=== PATIENT | male | born 1975 | race Caucasian/White ===

== ENCOUNTER 2016-08-27 09:45 | Outpatient (RCR) | payer MEDICARE, OTHER ==
[2016-08-27 09:58] LABS: MEAN CORPUSCULAR HEMOGLOBIN 29.6 PG (26.0-34.0); MEAN CORPUSCULAR VOLUME 83 FL (80-100); MEAN PLATELET VOLUME 8.8 FL (6.0-9.5); PLATELET COUNT 211 10^3uL (150-450); WHITE BLOOD COUNT 6.91 10^3uL (4.0-11.0)
[2016-08-27 10:23] LABS: MEAN CORPUSCULAR HGB CONC 35.6 g/dL (31.0-37.0)
[2016-08-27 10:52] LABS: ALBUMIN 4.5 g/dL (3.4-5.0); ANION GAP 16.5 MEQ/L (3-15); CALCULATED IONIZED CALCIUM 3.9 mg/dL (3.8-4.6); MAGNESIUM* 1.9 mg/dL (1.6-2.3); PHOSPHORUS 5.3 mg/dL (2.4-4.9)
[2016-08-27 11:48] LABS: BAND NEUTROPHILS % 0 % (0-6); EOSINOPHILS % 1 % (0-4); LYMPHOCYTES # 1.3 #; MONOCYTES # 0.7 #; MONOCYTES % 12 % (3-11); RBC MORPH SEE REFERENCE (NORMAL); SEGMENTED NEUTROPHILS % 68 % (51-67); TOTAL CELLS COUNTED 100
[2016-09-28 15:33] LABS: BASOPHILS % (AUTO) 0 % (0-2); EOSINOPHILS # (AUTO) 0.1 10^3uL; EOSINOPHILS % (AUTO) 1 % (0-4); LYMPHOCYTES # (AUTO) 0.8 X10^3; MEAN CORPUSCULAR HEMOGLOBIN 29.7 PG (26.0-34.0); MEAN CORPUSCULAR HGB CONC 34.4 g/dL (31.0-37.0); MEAN CORPUSCULAR VOLUME 86 FL (80-100); MONOCYTES # (AUTO) 0.5 X10^3; MONOCYTES % (AUTO) 8 % (3-11); NEUTROPHILS # (AUTO) 4.7 X10^3; NEUTROPHILS % (AUTO) 78 % (51-67); PLATELET COUNT 204 10^3uL (150-450); WHITE BLOOD COUNT 6.03 10^3uL (4.0-11.0)
[2016-10-03 19:42] LABS: KAPPA LIGHT CHAINS SERUM 3.22 mg/dL; LAMBDA LIGHT CHAINS SERUM 0.183 mg/dL
[2016-10-16 09:13] LABS: MEAN CORPUSCULAR HEMOGLOBIN 29.5 PG (26.0-34.0); MEAN CORPUSCULAR HGB CONC 33.9 g/dL (31.0-37.0); MEAN CORPUSCULAR VOLUME 87 FL (80-100); MEAN PLATELET VOLUME 8.9 FL (6.0-9.5); PLATELET COUNT 177 10^3uL (150-450); WHITE BLOOD COUNT 8.58 10^3uL (4.0-11.0)
[2016-10-16 09:26] LABS: BAND NEUTROPHILS % 1 % (0-6); EOSINOPHILS % 0 % (0-4); LYMPHOCYTES # 2.3 #; MONOCYTES # 0.3 #; MONOCYTES % 4 % (3-11); RBC MORPH NORMAL (NORMAL); SEGMENTED NEUTROPHILS % 68 % (51-67); TOTAL CELLS COUNTED 100
[2016-10-16 09:44] LABS: ALBUMIN 4.5 g/dL (3.4-5.0); ANION GAP 18.1 MEQ/L (3-15); CALCULATED IONIZED CALCIUM 4.2 mg/dL (3.8-4.6); MAGNESIUM* 1.6 mg/dL (1.6-2.3)
[2016-10-17 18:52] LABS: KAPPA LIGHT CHAINS SERUM 3.68 mg/dL; LAMBDA LIGHT CHAINS SERUM 0.159 mg/dL
[2016-10-22 16:05] LABS: MEAN CORPUSCULAR HEMOGLOBIN 29.8 PG (26.0-34.0); MEAN CORPUSCULAR HGB CONC 34.7 g/dL (31.0-37.0); MEAN CORPUSCULAR VOLUME 86 FL (80-100); PLATELET COUNT 192 10^3uL (150-450)
[2016-10-22 16:40] LABS: ALBUMIN 4.7 g/dL (3.4-5.0); ANION GAP 16.5 MEQ/L (3-15); CALCULATED IONIZED CALCIUM 4.2 mg/dL (3.8-4.6); MAGNESIUM* 1.9 mg/dL (1.6-2.3); PHOSPHORUS 4.7 mg/dL (2.4-4.9); TOTAL PROTEIN 7.8 g/dL (6.4-8.5)
[2016-10-22 16:41] LABS: BAND NEUTROPHILS % 0 % (0-6); EOSINOPHILS % 1 % (0-4); LYMPHOCYTES # 1.2 #; MONOCYTES # 0.3 #; MONOCYTES % 5 % (3-11); RBC MORPH NORMAL (NORMAL); SEGMENTED NEUTROPHILS % 76 % (51-67); TOTAL CELLS COUNTED 100
[2016-10-24 14:46] LABS: KAPPA LIGHT CHAINS SERUM 3.28 mg/dL; LAMBDA LIGHT CHAINS SERUM 0.159 mg/dL
[2016-11-12 10:12] LABS: BASOPHILS % (AUTO) 0 % (0-2); EOSINOPHILS # (AUTO) 0.2 10^3uL; EOSINOPHILS % (AUTO) 3 % (0-4); MEAN CORPUSCULAR HEMOGLOBIN 30.5 PG (26.0-34.0); MEAN CORPUSCULAR HGB CONC 35.1 g/dL (31.0-37.0); MEAN CORPUSCULAR VOLUME 87 FL (80-100); MEAN PLATELET VOLUME 8.9 FL (6.0-9.5); MONOCYTES # (AUTO) 0.6 X10^3; MONOCYTES % (AUTO) 10 % (3-11); NEUTROPHILS # (AUTO) 4.5 X10^3; NEUTROPHILS % (AUTO) 72 % (51-67); PLATELET COUNT 193 10^3uL (150-450); WHITE BLOOD COUNT 6.27 10^3uL (4.0-11.0)
[2016-11-20 14:56] LABS: MEAN CORPUSCULAR HEMOGLOBIN 30.3 PG (26.0-34.0); MEAN CORPUSCULAR HGB CONC 35.4 g/dL (31.0-37.0); MEAN CORPUSCULAR VOLUME 86 FL (80-100); MEAN PLATELET VOLUME 8.9 FL (6.0-9.5); PLATELET COUNT 173 10^3uL (150-450); WHITE BLOOD COUNT 7.14 10^3uL (4.0-11.0)
[2016-11-20 15:19] LABS: BAND NEUTROPHILS % 0 % (0-6); EOSINOPHILS % 1 % (0-4); LYMPHOCYTES # 0.8 #; MONOCYTES # 0.4 #; MONOCYTES % 5 % (3-11); SEGMENTED NEUTROPHILS % 83 % (51-67); TOTAL CELLS COUNTED 100
[2016-11-20 15:20] LABS: RBC MORPH NORMAL (NORMAL)
[2016-11-20 16:30] LABS: ALBUMIN 4.6 g/dL (3.4-5.0); ANION GAP 18.3 MEQ/L (3-15); CALCULATED IONIZED CALCIUM 4.2 mg/dL (3.8-4.6); MAGNESIUM* 1.8 mg/dL (1.6-2.3); PHOSPHORUS 4.5 mg/dL (2.4-4.9); TOTAL PROTEIN 7.5 g/dL (6.4-8.5)
[2016-11-22 13:31] LABS: KAPPA LIGHT CHAINS SERUM 5.3 mg/dL; LAMBDA LIGHT CHAINS SERUM 0.187 mg/dL (())
== END 2016-11-25 | disposition home or self-care (01) ==
LOC: LAB 09:45
PROVIDERS: ATTEND Internal Medicine Hematology & Oncology
DX: C90.00 Multiple myeloma not having achieved remission (principal); Z94.84 Stem cells transplant status
CPT/HCPCS: 36415; 80053; 82565; 83615; 83735; 83883; 84100; 85007; 85025; 85027

== ENCOUNTER 2016-11-19 10:58 | Emergency (ER) | payer MEDICARE, OTHER ==
[~2016-11-19] VITALS: Ht 190.5 cm; Wt 108.0 kg
[2016-11-19 12:07] LABS: BASOPHILS % (AUTO) 0 % (0-2); EOSINOPHILS # (AUTO) 0.2 10^3uL; EOSINOPHILS % (AUTO) 2 % (0-4); LYMPHOCYTES # (AUTO) 1.3 X10^3; MEAN CORPUSCULAR HEMOGLOBIN 30.7 PG (26.0-34.0); MEAN CORPUSCULAR HGB CONC 35.2 g/dL (31.0-37.0); MEAN CORPUSCULAR VOLUME 87 FL (80-100); MEAN PLATELET VOLUME 9.3 FL (6.0-9.5); MONOCYTES # (AUTO) 0.6 X10^3; MONOCYTES % (AUTO) 9 % (3-11); NEUTROPHILS # (AUTO) 4.7 X10^3; NEUTROPHILS % (AUTO) 69 % (51-67); PLATELET COUNT 169 10^3uL (150-450); WHITE BLOOD COUNT 6.78 10^3uL (4.0-11.0)
[2016-11-19 12:11] LABS: ALBUMIN 4.6 g/dL (3.4-5.0); ALKALINE PHOSPHATASE 79 U/L (38-126); ANION GAP 16.5 MEQ/L (3-15); BUN/CREATININE RATIO 16 (10-20); CALCULATED IONIZED CALCIUM 4.1 mg/dL (3.8-4.6); CREATINE KINASE 40 U/L (55-170); TOTAL PROTEIN 7.6 g/dL (6.4-8.5)
[2016-11-19 12:17] LABS: BILIRUBIN,URINE Negative (Negative); CLARITY,URINE Clear; GLUCOSE, URINE (UA) Negative (Negative); LEUKOCYTE ESTERASE ,URINE Negative (Negative); UROBILINOGEN,URINE 0.2 mg/dL (0.2-1.0)
[2016-11-19 12:18] LABS: COLOR,URINE Light Yellow
[2016-11-19 12:37] LABS: AMPHETAMINE SCREEN, URINE Negative (Negative); CANNABINOID SCREEN, URINE Negative (Negative); METHAMPHETAMINE SCREEN URINE S NEGATIVE (NEGATIVE); OPIATE SCREEN URINE Positive (Negative); PROPOXYPHENE STAT NEGATIVE (NEGATIVE)
[2016-11-19 13:59] VITALS: BP 98/57
== END 2016-11-19 14:00 | disposition home or self-care (01) ==
LOC: ED 10:59
DX: R55 Syncope and collapse (principal); C90.00 Multiple myeloma not having achieved remission; R51 Headache
CPT/HCPCS: 36415; 70450; 80053; 81003; 82550; 82553; 84484; 85025; 99283; G0478; 80307

== ENCOUNTER → 2016-11-19 | Outpatient (CLI) | payer MEDICARE, OTHER | LOC: EMS 10:37 | PROVIDERS: ATTEND Family Medicine | DX: T40.2X1A Poisoning by other opioids, accidental (unintentional), initial encounter (principal) ==

== ENCOUNTER → 2016-11-23 | Outpatient (CLI) | payer MEDICARE, OTHER | LOC: RAD 09:19 | PROVIDERS: ATTEND Internal Medicine Hematology & Oncology | DX: C90.00 Multiple myeloma not having achieved remission (principal); M54.2 Cervicalgia | CPT/HCPCS: 72157; 77075; A9579 ==

== ENCOUNTER 2016-11-27 19:16 | Emergency (ER) | payer MEDICARE, OTHER ==
[~2016-11-27] VITALS: Ht 188 cm; Wt 108.6 kg
[2016-11-27 22:28] LABS: BASOPHILS % (AUTO) 0 % (0-2); EOSINOPHILS % (AUTO) 0 % (0-4); MEAN CORPUSCULAR HEMOGLOBIN 30.4 PG (26.0-34.0); MEAN CORPUSCULAR VOLUME 85 FL (80-100); MONOCYTES # (AUTO) 0.5 X10^3; MONOCYTES % (AUTO) 5 % (3-11); NEUTROPHILS # (AUTO) 8.9 X10^3; NEUTROPHILS % (AUTO) 85 % (51-67); PLATELET COUNT 195 10^3uL (150-450); WHITE BLOOD COUNT 10.51 10^3uL (4.0-11.0)
[2016-11-27 22:32] LABS: MEAN CORPUSCULAR HGB CONC 35.8 g/dL (31.0-37.0)
[2016-11-27 22:37] LABS: ALBUMIN 4.7 g/dL (3.4-5.0); ANION GAP 16.3 MEQ/L (3-15); CALCULATED IONIZED CALCIUM 3.9 mg/dL (3.8-4.6); TOTAL PROTEIN 7.9 g/dL (6.4-8.5)
[2016-11-27] MEDS ORDERED: LORazepam 2 MG/ML (ATIVAN) 1 ML VIAL IV ONE (23:35)
[2016-11-27] MEDS ORDERED: BISACODYL 10 MG SUPP (DULCOLAX) PR ONE (23:35)
--- NOTE | 2016-11-28 00:28 | NUR ---
Pt had BM with in 5 minutes of receiving his suppository and enema.
[2016-11-28 00:33] LABS: BILIRUBIN,URINE Negative (Negative); CLARITY,URINE Clear; COLOR,URINE Yellow; GLUCOSE, URINE (UA) Negative (Negative); LEUKOCYTE ESTERASE ,URINE Negative (Negative); PH,URINE 8.5 (5.0 - 8.0); UROBILINOGEN,URINE 0.2 mg/dL (0.2-1.0)
[2016-11-28 00:34] LABS: URINE CENTRIFUGED VOLUME 12 mL
[2016-11-28 00:38] LABS: RBC,URINE 0-2 /HPF
[2016-11-28 00:44] VITALS: BP 127/88
== END 2016-11-28 00:45 | disposition home or self-care (01) ==
LOC: ED 19:18
DX: K59.00 Constipation, unspecified (principal)
CPT/HCPCS: 36415; 74022; 80053; 81003; 81015; 83690; 85025; 96361; 96374; 99285; A9270; J2060; J7030; 99282

== ENCOUNTER 2016-12-04 12:19 | Outpatient (RCR) | payer MEDICAID, MEDICARE ==
[~2016-12-04 12:19] MED LIST: ACYC400T PO; ALPR0.5T PO; ALPR1TAB2 PO; AMLO10TA4 PO; AMLO10TA5 PO; AMLO5TAB4 PO; AMOX1TAB12 PO; CALC-660 PO; CALC-900 PO; CALC600T12 PO; CHOL400T PO; CHOL400T26 PO; CYCL-265 PO; CYCL10TA45 PO; CYCL5TAB PO; DEXA4TAB PO; DIAZ5TAB3 PO; FAMO-119 PO; FRSM40T PO; FURO40TA4 PO; GABA600T PO; GBPN300C PO; HCT25T PO; HDR2T PO; HYDR8TAB PO; INDA2.5T2 PO; INSU100C7 SQ; INSU100I23 SQ; KCL20TCR PO; LENA2.5C PO; LENA25CA PO; LISI5TAB14 PO; LORA-405 PO; LSNP10T PO; LVF500T PO; MELO-249 PO; METH10TA2 PO; METH4TAB27 PO; MORP100T PO; MORP60TA PO; MULT-187 PO; NAPR220T29 PO; NAPR250T PO; NAPR500T PO; OMEP20CA6 PO; OXYC15TA79 PO; OXYC20TA3 PO; OXYC20TA72 PO; OXYC30TA80 PO; PARO25TA PO; PARO25TA9 PO; PARO40TA3 PO; POTA10CA16 PO; POTA10TA10 PO; POTA20TA12 PO; PRED50TA PO; SULF1TAB34 PO; TAPE100T5 PO; TEST2.5G2 TD; TRAM-25 PO; [UNRECOGNIZED DRUG - CODE] PO
[2016-12-07 15:54] LABS: MEAN CORPUSCULAR HEMOGLOBIN 29.7 PG (26.0-34.0); MEAN CORPUSCULAR HGB CONC 34.1 g/dL (31.0-37.0); MEAN CORPUSCULAR VOLUME 87 FL (80-100); MEAN PLATELET VOLUME 8.6 FL (6.0-9.5); PLATELET COUNT 202 10^3uL (150-450); WHITE BLOOD COUNT 7.15 10^3uL (4.0-11.0)
[2016-12-07 17:09] LABS: ALBUMIN 4.7 g/dL (3.4-5.0); ANION GAP 16.2 MEQ/L (3-15); CALCULATED IONIZED CALCIUM 4.2 mg/dL (3.8-4.6); TOTAL PROTEIN 7.7 g/dL (6.4-8.5)
[2016-12-07 17:25] LABS: BAND NEUTROPHILS % 3 % (0-6); SEGMENTED NEUTROPHILS % 76 % (51-67)
[2016-12-07 17:26] LABS: EOSINOPHILS % 3 % (0-4); LYMPHOCYTES # 0.6 #; MONOCYTES # 0.7 #; MONOCYTES % 10 % (3-11); RBC MORPH NORMAL (NORMAL); TOTAL CELLS COUNTED 100
[2016-12-20 14:47] LABS: MEAN CORPUSCULAR HEMOGLOBIN 29.6 PG (26.0-34.0); MEAN CORPUSCULAR HGB CONC 34.3 g/dL (31.0-37.0); MEAN CORPUSCULAR VOLUME 86 FL (80-100); MEAN PLATELET VOLUME 8.7 FL (6.0-9.5); PLATELET COUNT 177 10^3uL (150-450); WHITE BLOOD COUNT 8.05 10^3uL (4.0-11.0)
[2016-12-20 15:22] LABS: ALBUMIN 4.5 g/dL (3.4-5.0); ANION GAP 14.9 MEQ/L (3-15); CALCULATED IONIZED CALCIUM 3.8 mg/dL (3.8-4.6); MAGNESIUM* 1.8 mg/dL (1.6-2.3); TOTAL PROTEIN 7.7 g/dL (6.4-8.5)
[2016-12-20 15:24] LABS: BAND NEUTROPHILS % 1 % (0-6); EOSINOPHILS % 3 % (0-4); LYMPHOCYTES # 0.8 #; MONOCYTES # 0.5 #; MONOCYTES % 6 % (3-11); RBC MORPH NORMAL (NORMAL); SEGMENTED NEUTROPHILS % 80 % (51-67); TOTAL CELLS COUNTED 100
[2016-12-24 13:51] LABS: KAPPA LIGHT CHAINS SERUM 6.54 mg/dL
[2017-01-10] MEDS ORDERED: PRED10TA PO (03:18)
[2017-01-10] MEDS ORDERED: DIPH25TA65 PO (03:33)
[2017-01-10] MEDS ORDERED: POLY255P PO ×2 (08:26→08:28)
[2017-01-10] MEDS ORDERED: TEST75GE3 TOP (08:33)
[2017-01-10] MEDS ORDERED: LSNP10T PO (09:25)
[2017-01-10] MEDS ORDERED: INDA1.25 PO (09:26)
[2017-01-10] MEDS ORDERED: ACYC200C PO (09:33)
[2017-01-10] MEDS ORDERED: FLUT1AER IH (10:55)
[2017-01-10] MEDS ORDERED: POTA20TA15 PO (11:22)
[2017-01-14] MEDS ORDERED: CEFD300C PO (11:28)
[2017-01-22 08:20] LABS: BASOPHILS % (AUTO) 0 % (0-2); EOSINOPHILS # (AUTO) 0.1 10^3uL; EOSINOPHILS % (AUTO) 1 % (0-4); LYMPHOCYTES # (AUTO) 1.9 X10^3; MEAN CORPUSCULAR HEMOGLOBIN 29.5 PG (26.0-34.0); MEAN CORPUSCULAR HGB CONC 33.6 g/dL (31.0-37.0); MEAN CORPUSCULAR VOLUME 88 FL (80-100); MEAN PLATELET VOLUME 9.2 FL (6.0-9.5); MONOCYTES # (AUTO) 0.8 X10^3; MONOCYTES % (AUTO) 8 % (3-11); NEUTROPHILS # (AUTO) 7.3 X10^3; NEUTROPHILS % (AUTO) 72 % (51-67); PLATELET COUNT 246 10^3uL (150-450); WHITE BLOOD COUNT 10.19 10^3uL (4.0-11.0)
[2017-01-22 08:27] LABS: ALBUMIN 4.8 g/dL (3.4-5.0); ANION GAP 19.3 MEQ/L (3-15); CALCULATED IONIZED CALCIUM 3.8 mg/dL (3.8-4.6); TOTAL PROTEIN 8.8 g/dL (6.4-8.5)
[2017-01-28 15:35] LABS: MEAN CORPUSCULAR HGB CONC 34.1 g/dL (31.0-37.0); MEAN CORPUSCULAR VOLUME 88 FL (80-100); MEAN PLATELET VOLUME 8.7 FL (6.0-9.5); PLATELET COUNT 180 10^3uL (150-450); WHITE BLOOD COUNT 6.62 10^3uL (4.0-11.0)
[2017-01-28 15:43] LABS: BAND NEUTROPHILS % 1 % (0-6); EOSINOPHILS % 6 % (0-4); LYMPHOCYTES # 1.1 #; MONOCYTES # 0.8 #; MONOCYTES % 13 % (3-11); SEGMENTED NEUTROPHILS % 63 % (51-67); TOTAL CELLS COUNTED 100
[2017-01-28 15:44] LABS: RBC MORPH NORMAL (NORMAL)
[2017-01-28 15:46] LABS: ALBUMIN 4.4 g/dL (3.4-5.0); ANION GAP 17.4 MEQ/L (3-15); CALCULATED IONIZED CALCIUM 3.9 mg/dL (3.8-4.6); MAGNESIUM* 1.5 mg/dL (1.6-2.3); TOTAL PROTEIN 7.9 g/dL (6.4-8.5)
[2017-01-30 10:54] LABS: KAPPA LIGHT CHAINS SERUM 9.67 mg/dL; LAMBDA LIGHT CHAINS SERUM 0.0541 mg/dL
[2017-02-16] MEDS ORDERED: OXYC10TA7 PO (20:28)
[2017-02-16] MEDS ORDERED: ONDA8TAB6 PO (20:28)
[2017-02-16] MEDS ORDERED: PROM25TA14 PO (23:40)
== END 2017-02-27 19:18 | disposition home or self-care (01) ==
LOC: LAB 12:19
PROVIDERS: ATTEND Internal Medicine Hematology & Oncology
DX: C90.00 Multiple myeloma not having achieved remission (principal); Z94.84 Stem cells transplant status
CPT/HCPCS: 36415; 80053; 82784; 83615; 83735; 83883; 84100; 84155; 85007; 85025; 85027; 86334

== ENCOUNTER 2017-01-10 02:39 | Inpatient (IN) | payer MEDICARE ==
[~2017-01-10] VITALS: Ht 188 cm; Wt 107.8 kg
[2017-01-10] MEDS ORDERED: LORazepam 2 MG/ML (ATIVAN) 1 ML VIAL IV ONE (03:05)
[2017-01-10] MEDS: SODIUM CHLORIDE FLUSH 10 ML SYR IV PRN (03:05)
[2017-01-10 03:16] LABS: BASOPHILS % (AUTO) 0 % (0-2); EOSINOPHILS # (AUTO) 0.1 10^3uL; EOSINOPHILS % (AUTO) 2 % (0-4); LYMPHOCYTES # (AUTO) 1.6 X10^3; MEAN CORPUSCULAR HEMOGLOBIN 29.7 PG (26.0-34.0); MEAN CORPUSCULAR HGB CONC 33.5 g/dL (31.0-37.0); MEAN CORPUSCULAR VOLUME 89 FL (80-100); MEAN PLATELET VOLUME 8.6 FL (6.0-9.5); MONOCYTES # (AUTO) 0.6 X10^3; MONOCYTES % (AUTO) 7 % (3-11); NEUTROPHILS # (AUTO) 5.3 X10^3; NEUTROPHILS % (AUTO) 69 % (51-67); PLATELET COUNT 196 10^3uL (150-450); WHITE BLOOD COUNT 7.66 10^3uL (4.0-11.0)
[2017-01-10] MEDS ORDERED: PRED10TA PO (03:18)
[2017-01-10] MEDS ORDERED: SODIUM CHLORIDE FLUSH 3 ML SYR IV ONE (03:20)
[2017-01-10 03:25] LABS: ALBUMIN 4.5 g/dL (3.4-5.0); ALKALINE PHOSPHATASE 76 U/L (38-126); BUN/CREATININE RATIO 17 (10-20); CALCULATED IONIZED CALCIUM 3.8 mg/dL (3.8-4.6); TOTAL PROTEIN 7.8 g/dL (6.4-8.5)
[2017-01-10] MEDS ORDERED: DIPH25TA65 PO (03:33)
--- NOTE | 2017-01-10 03:35 | NUR ---
CRISTINE FROM LAB CALLED ET D DIMER [address] MCKEE KNOW AND SHE ORDERED A C SCAN
--- NOTE | 2017-01-10 04:08 | NUR ---
UP TO BAILEE BY HIMSELF
--- NOTE | 2017-01-10 04:33 | NUR ---
TEMP 102.2 TEMPORAL TOOK ORAL WAS [address] MCKEE KNOW
[2017-01-10] MEDS ORDERED: ACETAMINOPHEN 500 MG TAB (TYLENOL) PO ONE (04:35)
[2017-01-10] MEDS ORDERED: KETOROLAC 30 MG/ML (TORADOL) 1 ML VIAL IV ONE (04:35)
[2017-01-10 05:28] LABS: BILIRUBIN,URINE Negative (Negative); CLARITY,URINE Clear; COLOR,URINE Yellow; GLUCOSE, URINE (UA) Negative (Negative); LEUKOCYTE ESTERASE ,URINE Negative (Negative); PH,URINE 5.5 (5.0 - 8.0); UROBILINOGEN,URINE 0.2 mg/dL (0.2-1.0)
[2017-01-10 05:34] LABS: URINE CENTRIFUGED VOLUME 12 mL
[2017-01-10 05:36] LABS: RBC,URINE 0-2 /HPF
[2017-01-10] MEDS ORDERED: AZITHROMYCIN VIAL 500 MG in SODIUM CHLORIDE 250 ML IV ONE (05:40)
[2017-01-10] MEDS ORDERED: PIPERACILLIN/TAZOBACTAM 3.375 GM in SODIUM CHLORIDE 50 ML IV ONE (05:40)
--- NOTE | 2017-01-10 05:40 | NUR ---
GOT C SCAN RESULTS BACK AND INITIATED PNEUOMINIA PROTOCOL
--- NOTE | 2017-01-10 06:15 | NUR ---
Pt. arrives to the Med Surg floor via cart; accompanied by ER/RN Kirsten. Pt. is cooperative; drowsy; transfers to weigh chair without difficulty. IVF infusing currently: Zocarsonn & NS. Pt. stands at bedside to use urinal. Admission process continues.
[2017-01-10 06:20] VITALS: BP 115/69
--- NOTE | 2017-01-10 06:26 | NUR ---
Dr. Abebe assessing patient.
--- NOTE | 2017-01-10 06:38 | NUR ---
Pt.'s box tender here to see pt.
--- NOTE | 2017-01-10 06:47 | History and Physical (E) ---
History & Physical PCP: Jesu Hill MD CC: SOB, cough HPI: The pt has had MM for the past 5 years and currently undergoing immunotherapy for this. He presented to the ER due to worsening weakness, lethargy, cough, with productive sputum. The symptoms have been present for the past several month and he states a year ago he was intubated for 5 days due to a CAP . PMH: Multiple Myeloma chronic headaches chronic pain, HTN, osteoporosis ALLERGIES: Please see list at end of report. HOME MEDICATIONS: Please see list at end of report. FH" Father recently due to prostate cancer SH: no tob or ETOH, lives with mother in a house, on disability ROS CONSTITUTION: + fever or chills. CV: No chest pain, palpitations. PULM: + cough, shortness of breath, and difficulty breathing. GI: No upset stomach, nausea, vomiting, constipation, or diarrhea. No blood in stool. : No dysuria. No blood in urine. MS: + generalized muscle aches and pains. NEURO: No numbness or tingling. No weakness. INTEG: No rashes, lesions, or sores. OBJECTIVE GEN: Awake, alert, oriented, NAD CV: RRR S1 S2 normal with no murmur LUNGS: rales in bases laterally, no distress, ABD: normal bowel sounds. INTEG: No rash. Weight: 114.6 kg LABS: reviewed, IMAGING: CTA chest ASSESSMENT 1. Pneumonia 2. Multiple Myeloma 3. HTN 4. Chronic pain PLAN: Will place pt on rocephin & azithromycin, apears stable at this time but will need to monitor closely, recommend repeating CXR in am of 01/11, start breathing tx, resume home meds including long acting narcotics. Allergies/Home Medications Allergies: Coded Allergies: dexamethasone (Verified Allergy, Severe, HIVES , 01/10/17) STEROID RAGE sulfamethoxazole (Verified Allergy, Mild, Hives, 01/10/17) trimethoprim (Verified Allergy, Mild, Hives, 01/10/17) morphine (Verified Allergy, Unknown, Hives, 01/10/17) pregabalin (Verified Allergy, Unknown, Hives, 01/10/17) Reported Home Medications Scheduled Calcium Carbonate/Vitamin D3 (Calcium 600 + Vit D 800 Tab) 2 TAB PO DAILY ( Reported) Diphenhydramine HCl (Benadryl Allergy) 25 MG PO NEEDED (Reported) Indapamide (Indapamide) 2.5 MG PO DAILY (Reported) Lisinopril (Lisinopril) 5 MG PO DAILY (Reported) Paroxetine HCl (Paroxetine HCl) 40 MG PO DAILY (Reported) Potassium Chloride (Potassium Chloride) 20 MEQ PO BID (Reported) Prednisone (Prednisone) 10 MG PO DAILY (Reported) Testosterone (Androgel) 1 APPLIC TD DAILY (Reported) Scheduled PRN Cyclobenzaprine HCl (Flexeril) 10 MG PO TID PRN PRN MUSCLE SPASMS (Reported) Diazepam (Diazepam) 5 MG PO TID PRN PRN ANXIETY (Reported) Furosemide (Furosemide) 40 MG PO DAILY PRN PRN EDEMA (Reported) Hydromorphone HCl (Hydromorphone) 8-16 MG PO Q3HR PRN PRN PAIN (Reported) Oxycodone HCl (Oxycodone HCl) 30-60 MG PO EVERY 3-4 HOURS PRN PRN PAIN (Reported ) Discontinued Medications Amoxicillin/Clavulanate Potassium (Augmentin 875mg/125mg) 1 TAB PO BID Discontinued Reason: Update list Methylprednisolone (Medrol Dosepack) 21 TAB PO UD Discontinued Reason: Update list Copies to: End of Report . RUSTAM KOENIG MD Jan 10, 2017 06:20
--- NOTE | 2017-01-10 07:10 | NUR ---
Woke patient from sleep for bedside rounds. He denied any pain at this time. IV sites in left AC and left forearm have no redness or edema. He falls back to sleep quickly.
--- NOTE | 2017-01-10 07:35 | Diagnostic Imaging Report ---
PROCEDURE: CT angiography of the chest with contrast. TECHNIQUE: Multiple contiguous axial images were obtained through the chest after uneventful bolus administration of intravenous contrast. Reconstructed CTA MIP acquisitions were also performed. INDICATION: Cough and elevated d-dimer There is somewhat limited pulmonary arterial opacification, however, no filling defect is identified to indicate embolism. Dependent atelectasis and/or pneumonitis is seen in both lung bases. There is diffuse pulmonary venous congestion with small amount of right pleural fluid. There has been increase in diffuse degenerative change most particularly at the sternoclavicular joints. There is also an increase in diffuse osteopenia and mixed lytic and sclerotic changes throughout the osseous structures. IMPRESSION: No CTA evidence of pulmonary embolism. There is dependent atelectasis and/or pneumonitis in both lung bases. Mixed lytic and sclerotic foci throughout the bones may represent metabolic bone disorder or possible metastatic disease and clinical correlation is recommended. Dictated by: Dictated on workstation # [id number]
--- NOTE | 2017-01-10 07:40 | Diagnostic Imaging Report ---
INDICATION: Cough Comparison is made to the study of 11/27/2016. There is mild cardiomegaly. Pulmonary vascularity is increased indicating mild venous congestion. No pneumothorax is identified. There is basilar atelectasis and/or pneumonitis. Areas of sclerosis within the spine and ribs are again noted with previous thoracic vertebral body augmentation. IMPRESSION: Developing pulmonary venous congestion with basilar atelectasis and/or pneumonitis. Mixed lytic and sclerotic lesion involving the osseous structures may be the result of metastatic disease with pathologic fractures. Clinical correlation is recommended. Dictated by: Dictated on workstation # [id number]
--- NOTE | 2017-01-10 07:45 | NUR ---
Patient complains of chronic pain the back rated at 8/10. It is too soon for PRN Tylenol- last dose in ER was about 0445. Informed the patient that I will contact Dr. Aguilar regarding pain control.
[2017-01-10 07:56] VITALS: BP 115/77
[2017-01-10] MEDS ORDERED: cefTRIAXone SODIUM 1,000 MG in SODIUM CHLORIDE 50 ML IV SCH (08:00)
--- NOTE | 2017-01-10 08:00 | NUR ---
Resting in bed with his eyes closed. IV site occludes frequently when the patient repositions- no redness or edema noted.
[2017-01-10] MEDS ORDERED: POLY255P PO ×2 (08:26→08:28)
[2017-01-10] MEDS ORDERED: HYDROmorphone (DILAUDID) 4 MG TAB PO PRN (08:30)
[2017-01-10] MEDS ORDERED: MAGNESIUM HYDROXIDE 80MG/ML (MILK OF MAGNESIA) 30 ML UDC PO PRN (08:30)
[2017-01-10] MEDS ORDERED: DIAZEPAM 5 MG (VALIUM) TABLET PO PRN (08:30)
[2017-01-10] MEDS ORDERED: DOCUSATE SODIUM 100 MG (COLACE) CAP PO PRN (08:30)
[2017-01-10] MEDS ORDERED: OXYCODONE IMMEDIATE PO PRN (08:30)
[2017-01-10] MEDS ORDERED: TEST75GE3 TOP (08:33)
--- NOTE | 2017-01-10 08:50 | NUR ---
Gave Dilaudid 8mg. PO for complaint of chronic back pain rated 8/10. Patient instructs me that this is half as much as he usually takes at home. Will discuss with Dr. Aguilar.
[2017-01-10] MEDS ORDERED: lisINopril 5 MG (PRINIVIL) TABLET PO SCH (09:00)
[2017-01-10] MEDS ORDERED: AZITHROMYCIN VIAL 500 MG in SODIUM CHLORIDE 250 ML IV SCH (09:00)
[2017-01-10] MEDS ORDERED: INDAPAMIDE 2.5 MG (LOZOL) TAB PO SCH (09:00)
--- NOTE | 2017-01-10 09:12 | NUR ---
NUTRITION ASSESSMENT Level 1 Patient: Joselito Hanley Age/Sex: 41/M Date Screened: 01-10-17 Weight: 251.4#/114.3 kg Height: 74 inches Primary Diagnosis: pneumonia, multiple myeloma Diet Order: regular Relevant labs: glucose 118 Food allergies: N Nutrition Assessment Criteria Age over 80: N Body Mass Index (BMI) under 19: N Admission Screening Indicates Risk? 3 points Moderate/High Risk Diagnosis: 3 points TPN or PPN: N NPO or clear liquid diet: N Serum Glucose <70 or >180: N Hgb A1c >6.7: N/A Total: 6 points Risk Screen: __ Patient at low nutritional risk based on available data; reevaluate in 5-7 days __ Patient at moderate nutritional risk based on available data; reevaluate in 3-5 days _X_ Patient at high nutritional risk; complete Nutrition Assessment within 48 hours of admission.
[2017-01-10] MEDS ORDERED: INDAPAMIDE 1.25 MG PO SCH ×4 (09:15→21:00)
[2017-01-10] MEDS ORDERED: LSNP10T PO (09:25)
[2017-01-10] MEDS ORDERED: INDA1.25 PO (09:26)
[2017-01-10] MEDS ORDERED: ACYC200C PO (09:33)
--- NOTE | 2017-01-10 10:00 | NUR ---
Patient reports decreased pain and rates it at 6/10 at this time.
[2017-01-10] MEDS: ENOXAPARIN 40 MG/0.4 ML (LOVENOX) SYR SC SCH (10:21)
[2017-01-10] MEDS: POLYETHYLENE GLYCOL 17 GM (MIRALAX) PACKET PO SCH (10:21)
[2017-01-10] MEDS: CALCIUM CARBONATE 500 MG + VITAMIN D 200 IU TABLET PO SCH (10:21)
[2017-01-10] MEDS: PARoxetine 20 MG (PAXIL) TAB PO SCH (10:21)
[2017-01-10] MEDS: predniSONE 10 MG (DELTASONE) TABLET PO SCH (10:21)
--- NOTE | 2017-01-10 10:30 | NUR ---
Sleeping. Respiration rate= 24.
[2017-01-10] MEDS ORDERED: FLUT1AER IH (10:55)
[2017-01-10] MEDS ORDERED: POTA20TA15 PO (11:22)
[2017-01-10 11:38] VITALS: BP 113/74
[2017-01-10] MEDS: HYDROmorphone (DILAUDID) 4 MG TAB PO PRN ×4 (12:16→23:50)
--- NOTE | 2017-01-10 13:02 | Progress Note (E) ---
Progress Note SUBJECTIVE Admitted after midnight. 41 year old male with multiple myeloma. Came to ED with weakness, lethargy, cough. Febrile in ED with peak temp 103.0. WBC was not elevated. 69% N. Lactic acid was 2.3. CRP was not checked. Resp PCR panel was negative. CT chest and CXR as noted below, suggestive of pneumonia. On exam, awake, alert, interactive, eating lunch. Speaking clearly. No respiratory distress at present. Fever has improved. He provides update about multiple myeloma: sees Dr. Winter. Also still getting radiation therapy in [place] and is due for new eval for lesions in his spine and scalp. Mentions recent increased back pain which he thinks is due to wrestling with his dog, but also chronically getting worse because of MM. OBJECTIVE Vital Signs Date Time Temp Pulse Resp B/P Pulse Ox O2 Delivery O2 Flow Rate FiO2 01/10/17 11:38 98.2 87 18 113/74 95 Room air I & O 01/09/17 01/10/17 Cumulative From/Thru 19:00 07:00 01/10/17 02:43 - 01/10/17 06:20 Intake Total 1500 ml 1500 ml Balance 1500 ml 1500 ml GEN: Awake, alert, interactive, oriented. NAD. HEENT: EOMI, clear sclerae, mildly dry oral mucosa. CV: Regular without murmur. PULM: ABD: Soft, NT/ND with active bowel sounds. EXTR: Trace ankle edema. Warm, dry, well-perfused. INTEG: No rash. MS: Minimal tenderness to palpation at present. Pain tends to be worse with flexion/extension. Full ROM not assessed. NEURO: No focal motor neuro deficit at present. Lab-Past 14 Days, 35 Results 01/10/17 03:05: Alanine Aminotransferase (ALT/SGPT) 50, Albumin 4.5, Albumin/Globulin Ratio 1.363, Alkaline Phosphatase 76, Anion Gap 20.0H, Aspartate Amino Transf (AST/ SGOT) 32, BUN/Creatinine Ratio 17, Basophils # (Auto) 0.0, Basophils (%) (Auto) 0, Blood Urea Nitrogen 16, Calcium Level 9.2, Calcium/Ionized Calcium Ratio 3.8 , Calculated Osmolality 279L, Carbon Dioxide Level 28, Chloride Level 100, Creatinine 0.96, D-Dimer 1129*H, Eosinophils # (Auto) 0.1, Eosinophils (%) (Auto ) 2, Estimat Glomerular Filtration Rate 105.5, Estimated GFR (Non- 87.2, Glucose Level 118#H, Hematocrit 37.90L, Hemoglobin 12.7L, Lymphocytes # (Auto) 1.6, Lymphocytes (%) (Auto) 21, Mean Corpuscular Hemoglobin 29.7, Mean Corpuscular Hemoglobin Concent 33.5, Mean Corpuscular Volume 89, Mean Platelet Volume 8.6, Monocytes # (Auto) 0.6, Monocytes (%) (Auto ) 7, WW-Hqe-C-Type Natriuretic Peptide 404H, Neutrophils # (Auto) 5.3, Neutrophils (%) (Auto) 69H, Platelet Count 196, Potassium Level 4.0, Red Blood Count 4.28L, Red Cell Distribution Width 13.2, Sodium Level 144, Total Bilirubin 0.5, Total Protein 7.8, Troponin I < 0.012, White Blood Count 7.66 01/10/17 04:30: Adenovirus (PCR) Negative, Bordetella parapertussis DNA (PCR) Negative, Chlamydophila pneumoniae (PCR) Negative, Coronavirus Type 229E (PCR) Negative, Coronavirus Type HKU1 (PCR) Negative, Coronavirus Type NL63 (PCR) Negative, Coronavirus Type OC43 (PCR) Negative, Enterovirus/Rhinovirus (PCR) Negative, Human Metapneumovirus (PCR) Negative, Influenza Type A (H1) (PCR) Negative, Influenza Virus Type B (PCR) Negative, Mycoplasma pneumoniae (PCR) Negative, Parainfluenza Type 1 (PCR) Negative, Parainfluenza Type 2 (PCR) Negative, Parainfluenza Type 3 (PCR) Negative, Parainfluenza Type 4 (PCR) Negative, Respiratory Syncytial Virus (PCR) Negative, Urine Bacteria None seen, Urine Bilirubin Negative, Urine Blood Trace-intactH, Urine Clarity Clear, Urine Collection Type Clean catch, Urine Color Yellow, Urine Glucose (UA) Negative, Urine Ketones Negative, Urine Leukocyte Esterase Negative, Urine Microscopic RBC 0-2, Urine Nitrite Negative, Urine Protein Negative, Urine Specific Merrill 1.020, Urine Squamous Epithelial Cells 0-2, Urine Urobilinogen 0.2, Urine WBC 0- 2, Urine pH 5.5, Volume Urine Centrifuged 12 ml 01/10/17 05:05: Lactic Acid Level 2.3H MICRO 01/10 Resp PCR Panel Negative 01/10 Blood culture PENDING 01/10 Sputum culture PENDING IMAGING 01/10/17 CT ANGIO CHEST W PROCEDURE: CT angiography of the chest with contrast. TECHNIQUE: Multiple contiguous axial images were obtained through the chest after uneventful bolus administration of intravenous contrast. Reconstructed CTA MIP acquisitions were also performed. INDICATION: Cough and elevated d- dimer There is somewhat limited pulmonary arterial opacification, however, no filling defect is identified to indicate embolism. Dependent atelectasis and/or pneumonitis is seen in both lung bases. There is diffuse pulmonary venous congestion with small amount of right pleural fluid. There has been increase in diffuse degenerative change most particularly at the sternoclavicular joints. There is also an increase in diffuse osteopenia and mixed lytic and sclerotic changes throughout the osseous structures. IMPRESSION: No CTA evidence of pulmonary embolism. There is dependent atelectasis and/or pneumonitis in both lung bases. Mixed lytic and sclerotic foci throughout the bones may represent metabolic bone disorder or possible metastatic disease and clinical correlation is recommended. 01/10/17 CHEST PA/LAT (2 VIEW)* INDICATION: Cough Comparison is made to the study of 11/27/2016. There is mild cardiomegaly. Pulmonary vascularity is increased indicating mild venous congestion. No pneumothorax is identified. There is basilar atelectasis and/or pneumonitis. Areas of sclerosis within the spine and ribs are again noted with previous thoracic vertebral body augmentation. IMPRESSION: Developing pulmonary venous congestion with basilar atelectasis and /or pneumonitis. Mixed lytic and sclerotic lesion involving the osseous structures may be the result of metastatic disease with pathologic fractures. Clinical correlation is recommended ASSESSMENT Joselito Hanley is a 41 year old male admitted from ED 01/10 with acute respiratory distress and SIRS/sepsis attributed to community acquired pneumonia. He has underlying multiple myeloma as well as other chronic problems. PLAN * SIRS/Sepsis: Attributed to pneumonia. * Acute Respiratory Distress: Oxygen protocol, acapella. * Community Acquired Pneumonia: Blood culture pending. Sputum pending sample. Resp PCR panel negative. Got pip-tazo in ED. On admit, azithromycin and ceftriaxone were ordered. Added guaifenesin. * Fever: Acetaminophen * Multiple Myeloma: Has lytic/lastic lesions in spine. Radiation therapy in [place]. [facility] care at [facility]. Obtain updated notes from Dr. Winter's office. * Dehydration: NS bolus x 2 given in ED. Maintenance fluids until he is tolerating PO intake. * F/E/N: Regular diet. IVF as above. Peripheral IV. * Prophylaxis: Enoxaparin * Code Status: Full * Dispo: Inpatient. Expect 3 day stay. CHRONIC ISSUES * GERD: Off pantoprazole. Observe. * Anxiety: Diazepam * HTN: Indapamide, lisinopril * Depression: Paroxetine * Hypogonadism: Resume testosterone at discharge. * MAXWELL: Does not wear CPAP at home. * Diabetes Mellitus: Reportedly diet controlled. For now, observe. * Chronic Pain: Hydromorphone * Constipation: Bowel regimen * Muscle Spasms: Cyclobenzaprine. RUSTAM SIFUENTES MD Jan 10, 2017 12:52
--- NOTE | 2017-01-10 13:20 | NUR ---
Sent sputum sample to the lab.
--- NOTE | 2017-01-10 14:32 | NUR ---
MULTIDISCIPLINARY MTG/DR. SIFUENTES: Pt. admitted with pneumonia. When Pt. was admitted he was febrile but his fever has since broke. Pt. receiving IV antibiotics. Did receive a sputum result and this was sent to the lab. Will stop fluids after this bag is complete. Expect Pt. to be here a couple days. No discharge needs identified at this time.
--- NOTE | 2017-01-10 15:17 | NUR ---
SpO2 on Room Air 97-98%. Will start on Acapella.
--- NOTE | 2017-01-10 15:47 | NUR ---
MED REC COMPLETE--current med list obtained from external med history application, med lists provided by patient's PCP and oncologist, and patient interview. Completed by Delta Glover, Pharm. D. Candidate 2017.
[2017-01-10 15:49] VITALS: BP 113/71
--- NOTE | 2017-01-10 19:00 | NUR ---
Patient has remained on room air throughout the shift with respirations unlabored. Cough persists with green/brown sputum that is sometimes blood tinged.
[2017-01-10] MEDS: INDAPAMIDE 1.25 MG PO SCH (20:19)
--- NOTE | 2017-01-10 20:20 | NUR ---
Dilaudid 16 mg PO given for pain rated "7"; thorax/spine/back. Pt. currently watching television.
[2017-01-10] MEDS: guaiFENesin ER 600 MG (MUCINEX) TAB PO SCH (20:21)
--- NOTE | 2017-01-10 21:15 | NUR ---
IVF fully infused; last bag ordered; tubing removed; saline lock secure. Pt. ambulates to shower now.
--- NOTE | 2017-01-10 23:50 | NUR ---
Dilaudid 16 mg PO given for pain rated "7". Valium 5 mg PO given for anxiety/sleep aid.
[2017-01-11 00:16] VITALS: BP 105/66
--- NOTE | 2017-01-11 02:00 | NUR ---
Sameer from lab phones to report positive blood culture: 'Strep Pneumo'.
--- NOTE | 2017-01-11 05:51 | NUR ---
Lab here to draw.
[2017-01-11 06:25] LABS: BASOPHILS % (AUTO) 0 % (0-2); EOSINOPHILS # (AUTO) 0.1 10^3uL; EOSINOPHILS % (AUTO) 1 % (0-4); MEAN CORPUSCULAR HEMOGLOBIN 29.7 PG (26.0-34.0); MEAN CORPUSCULAR HGB CONC 33.4 g/dL (31.0-37.0); MEAN CORPUSCULAR VOLUME 89 FL (80-100); MONOCYTES % (AUTO) 11 % (3-11); NEUTROPHILS # (AUTO) 7.4 X10^3; NEUTROPHILS % (AUTO) 78 % (51-67); PLATELET COUNT 133 10^3uL (150-450); WHITE BLOOD COUNT 9.52 10^3uL (4.0-11.0)
[2017-01-11 07:12] LABS: ALBUMIN 3.3 g/dL (3.4-5.0); ANION GAP 12.4 MEQ/L (3-15); PHOSPHORUS 3.5 mg/dL (2.4-4.9)
[2017-01-11 07:20] VITALS: BP 108/62
--- NOTE | 2017-01-11 07:35 | NUR ---
Patient sleeping in bed upon shift assessment. Arouses easily to verbal stimuli but then returns to sleep. Denies pain. Does allow nurse to assess heart and lung sounds. HR RRR. Afebrile. Denies SOA. Updated on plan of care for shift including antibiotic therapy and pain management. Call light in reach.
[2017-01-11] MEDS: SODIUM CHLORIDE FLUSH 10 ML SYR IV PRN (08:26)
[2017-01-11] MEDS: cefTRIAXone SODIUM 1,000 MG in SODIUM CHLORIDE 50 ML IV SCH (08:26)
[2017-01-11] MEDS: AZITHROMYCIN VIAL 500 MG in SODIUM CHLORIDE 250 ML IV SCH (09:02)
--- NOTE | 2017-01-11 11:10 | NUR ---
Patient sleeps from 0735 - 1110. Requests AM medication administration be deferred "until he was ready". All PO medications provided at 1110. Requests PRN Dilaudid for c/o general bone pain rated 6/10 on pain scale. Sitting at edge of bed consuming cereal. Call light in reach.
[2017-01-11] MEDS: CALCIUM CARBONATE 500 MG + VITAMIN D 200 IU TABLET PO SCH (11:13)
[2017-01-11] MEDS: lisINopril 10 MG (PRINIVIL) TABLET PO SCH (11:13)
[2017-01-11] MEDS: PARoxetine 20 MG (PAXIL) TAB PO SCH (11:14)
[2017-01-11] MEDS: predniSONE 10 MG (DELTASONE) TABLET PO SCH (11:14)
[2017-01-11] MEDS: HYDROmorphone (DILAUDID) 4 MG TAB PO PRN ×2 (11:14→20:30)
[2017-01-11] MEDS: POLYETHYLENE GLYCOL 17 GM (MIRALAX) PACKET PO SCH (11:14)
[2017-01-11] MEDS: guaiFENesin ER 600 MG (MUCINEX) TAB PO SCH ×2 (11:14→20:22)
[2017-01-11] MEDS: ENOXAPARIN 40 MG/0.4 ML (LOVENOX) SYR SC SCH (11:14)
--- NOTE | 2017-01-11 12:10 | Progress Note (E) ---
Progress Note SUBJECTIVE Overnight, blood culture turned positive as noted. Remains afebrile. Weaned to room air yesterday. Pain medication being given for back pain related to MM. WBC stable. Chemistry stable. On exam, more tired but otherwise doing OK. Denies new complaints. OBJECTIVE Vital Signs Date Time Temp Pulse Resp B/P Pulse Ox O2 Delivery O2 Flow Rate FiO2 01/11/17 07:20 97.7 62 14 108/62 96 Room air I & O 01/10/17 01/11/17 Cumulative From/Thru 19:00 07:00 01/10/17 02:43 - 01/11/17 06:15 Intake Total 2638 ml 1575 ml 5713 ml Output Total 1100 ml 1750 ml 2850 ml Balance 1538 ml -175 ml 2863 ml GEN: Sleeping but stirs to exam. HEENT: EOMI, clear sclerae, mildly dry oral mucosa. CV: Regular without murmur. PULM: CTA B with mildly diminished bases but no R/R/W. ABD: Soft, NT/ND with active bowel sounds. EXTR: Trace ankle edema. Warm, dry, well-perfused. INTEG: No rash. MS: Minimal tenderness to palpation at present. Pain tends to be worse with flexion/extension. Full ROM not assessed. NEURO: No focal motor neuro deficit at present. Lab-Past 14 Days, 35 Results 01/10/17 03:05: Alanine Aminotransferase (ALT/SGPT) 50, Albumin 4.5, Albumin/Globulin Ratio 1.363, Alkaline Phosphatase 76, Anion Gap 20.0H, Aspartate Amino Transf (AST/ SGOT) 32, BUN/Creatinine Ratio 17, Basophils # (Auto) 0.0, Basophils (%) (Auto) 0, Blood Urea Nitrogen 16, Calcium Level 9.2, Calcium/Ionized Calcium Ratio 3.8 , Calculated Osmolality 279L, Carbon Dioxide Level 28, Chloride Level 100, Creatinine 0.96, D-Dimer 1129*H, Eosinophils # (Auto) 0.1, Eosinophils (%) (Auto ) 2, Estimat Glomerular Filtration Rate 105.5, Estimated GFR (Non- 87.2, Glucose Level 118#H, Hematocrit 37.90L, Hemoglobin 12.7L, Lymphocytes # (Auto) 1.6, Lymphocytes (%) (Auto) 21, Mean Corpuscular Hemoglobin 29.7, Mean Corpuscular Hemoglobin Concent 33.5, Mean Corpuscular Volume 89, Mean Platelet Volume 8.6, Monocytes # (Auto) 0.6, Monocytes (%) (Auto ) 7, WM-Fpt-N-Type Natriuretic Peptide 404H, Neutrophils # (Auto) 5.3, Neutrophils (%) (Auto) 69H, Platelet Count 196, Potassium Level 4.0, Red Blood Count 4.28L, Red Cell Distribution Width 13.2, Sodium Level 144, Total Bilirubin 0.5, Total Protein 7.8, Troponin I < 0.012, White Blood Count 7.66 01/10/17 04:30: Adenovirus (PCR) Negative, Bordetella parapertussis DNA (PCR) Negative, Chlamydophila pneumoniae (PCR) Negative, Coronavirus Type 229E (PCR) Negative, Coronavirus Type HKU1 (PCR) Negative, Coronavirus Type NL63 (PCR) Negative, Coronavirus Type OC43 (PCR) Negative, Enterovirus/Rhinovirus (PCR) Negative, Human Metapneumovirus (PCR) Negative, Influenza Type A (H1) (PCR) Negative, Influenza Virus Type B (PCR) Negative, Mycoplasma pneumoniae (PCR) Negative, Parainfluenza Type 1 (PCR) Negative, Parainfluenza Type 2 (PCR) Negative, Parainfluenza Type 3 (PCR) Negative, Parainfluenza Type 4 (PCR) Negative, Respiratory Syncytial Virus (PCR) Negative, Urine Bacteria None seen, Urine Bilirubin Negative, Urine Blood Trace-intactH, Urine Clarity Clear, Urine Collection Type Clean catch, Urine Color Yellow, Urine Glucose (UA) Negative, Urine Ketones Negative, Urine Leukocyte Esterase Negative, Urine Microscopic RBC 0-2, Urine Nitrite Negative, Urine Protein Negative, Urine Specific [place] 1.020, Urine Squamous Epithelial Cells 0-2, Urine Urobilinogen 0.2, Urine WBC 0- 2, Urine pH 5.5, Volume Urine Centrifuged 12 ml 01/10/17 05:05: Lactic Acid Level 2.3H 01/11/17 05:10: Acinetobacter baumannii (PCR) Negative, Antimicrobial Susceptibility , Brit albicans (PCR) Negative, Brit glabrata (PCR) Negative, Brit krusei (PCR) Negative, Brit parapsilosis (PCR) Negative, Brit tropicalis ( PCR) Negative, Enterobacter cloacae complex (PCR) Negative, Enterobacteriaceae species (PCR) Negative, Enterococcus species (PCR) Negative, Escherichia coli ( PCR) Negative, Group B Streptococcus (PCR) Negative, Haemophilis influenzae (PCR ) Negative, KPC-Carbapenem Resistance Gene Negative, Klebsiella oxytoca (PCR) Negative, Klebsiella pneumoniae (PCR) Negative, Listeria monocytogenes (PCR) Negative, Neisseria meningitidis (PCR) Negative, Proteus species (PCR) Negative , Pseudomonas aeruginosa (PCR) Negative, Serratia marcescens (PCR) Negative, Staphylococcus aureus (PCR)(LAB) Negative, Staphylococcus species (PCR) Negative , Streptococcus pneumoniae (PCR) Positive*A, Streptococcus pyogenes (TEM-PCR) Negative, Streptococcus species (PCR) Positive*A, [place]/B-Vancomycin Resistance Genes Negative, mecA-Methicillin Resistance Gene Negative 01/11/17 05:50: Albumin 3.3#L, Anion Gap 12.4, Basophils # (Auto) 0.0, Basophils (%) (Auto) 0, Blood Urea Nitrogen 16, Calcium Level 8.1L, Carbon Dioxide Level 27, Chloride Level 106, Creatinine 0.81, Eosinophils # (Auto) 0.1, Eosinophils (%) (Auto) 1, Estimat Glomerular Filtration Rate 128.4, Estimated GFR (Non- 106.1, Glucose Level 90#, Hematocrit 29.60L, Hemoglobin 9.9L, Lymphocytes # ( Auto) 1.0, Lymphocytes (%) (Auto) 10L, Mean Corpuscular Hemoglobin 29.7, Mean Corpuscular Hemoglobin Concent 33.4, Mean Corpuscular Volume 89, Mean Platelet Volume 9.0, Monocytes # (Auto) 1.0, Monocytes (%) (Auto) 11, Neutrophils # (Auto ) 7.4, Neutrophils (%) (Auto) 78H, Phosphorus Level 3.5#, Platelet Count 133L, Potassium Level 3.7, Red Blood Count 3.33L, Red Cell Distribution Width 13.4, Sodium Level 142, White Blood Count 9.52 MICRO 01/10 Resp PCR Panel Negative 01/10 Blood culture Positive for GPC. PCR positive for Strep pneumoniae. C&S still pending. 01/10 Sputum culture PENDING IMAGING 01/10/17 CT ANGIO CHEST W PROCEDURE: CT angiography of the chest with contrast. TECHNIQUE: Multiple contiguous axial images were obtained through the chest after uneventful bolus administration of intravenous contrast. Reconstructed CTA MIP acquisitions were also performed. INDICATION: Cough and elevated d- dimer There is somewhat limited pulmonary arterial opacification, however, no filling defect is identified to indicate embolism. Dependent atelectasis and/or pneumonitis is seen in both lung bases. There is diffuse pulmonary venous congestion with small amount of right pleural fluid. There has been increase in diffuse degenerative change most particularly at the sternoclavicular joints. There is also an increase in diffuse osteopenia and mixed lytic and sclerotic changes throughout the osseous structures. IMPRESSION: No CTA evidence of pulmonary embolism. There is dependent atelectasis and/or pneumonitis in both lung bases. Mixed lytic and sclerotic foci throughout the bones may represent metabolic bone disorder or possible metastatic disease and clinical correlation is recommended. 01/10/17 CHEST PA/LAT (2 VIEW)* INDICATION: Cough Comparison is made to the study of 11/27/2016. There is mild cardiomegaly. Pulmonary vascularity is increased indicating mild venous congestion. No pneumothorax is identified. There is basilar atelectasis and/or pneumonitis. Areas of sclerosis within the spine and ribs are again noted with previous thoracic vertebral body augmentation. IMPRESSION: Developing pulmonary venous congestion with basilar atelectasis and /or pneumonitis. Mixed lytic and sclerotic lesion involving the osseous structures may be the result of metastatic disease with pathologic fractures. Clinical correlation is recommended ASSESSMENT Joselito Hanley is a 41 year old male admitted from ED 01/10 with acute respiratory distress and SIRS/sepsis attributed to community acquired pneumonia. He has underlying multiple myeloma as well as other chronic problems. PLAN * SIRS/Sepsis: Resolving. Attributed to pneumonia. * Acute Respiratory Distress: Resolving rapidly. Oxygen protocol, acapella. * Community Acquired Pneumonia due to Strep pneumoniae: Blood culture pending but PCR positive as noted. Sputum pending. Resp PCR panel negative. Got pip- tazo in ED. On admit, azithromycin and ceftriaxone were ordered. Added guaifenesin. * Fever: Resolving. Acetaminophen * Multiple Myeloma: Has lytic/lastic lesions in spine. Radiation therapy in [place]. [facility]. Obtain updated notes from Dr. Winter's office. * Dehydration: NS bolus x 2 given in ED. Maintenance fluids until he is tolerating PO intake. * F/E/N: Regular diet. IVF as above. Peripheral IV. * Prophylaxis: Enoxaparin * Code Status: Full * Dispo: Inpatient. Expect 3 day stay. CHRONIC ISSUES * GERD: Off pantoprazole. Observe. * Anxiety: Diazepam * HTN: Indapamide, lisinopril * Depression: Paroxetine * Hypogonadism: Resume testosterone at discharge. * MAXWELL: Does not wear CPAP at home. * Diabetes Mellitus: Reportedly diet controlled. For now, observe. * Chronic Pain: Hydromorphone * Constipation: Bowel regimen * Muscle Spasms: Cyclobenzaprine. RUSTAM SIFUENTES MD Jan 11, 2017 12:05
[2017-01-11 15:27] VITALS: BP 120/79
--- NOTE | 2017-01-11 19:00 | NUR ---
Assumed care of patient, resting in bed with eyes closed during shift change rounds.
[2017-01-11 19:37] VITALS: BP 138/84
[2017-01-11] MEDS: INDAPAMIDE 1.25 MG PO SCH (20:22)
--- NOTE | 2017-01-11 20:25 | NUR ---
Family at bedside, patient lying in bed states "feels hot". Ambulates to bathroom per self with steady gait, washes face in sink, takes po hs medications, states relief and denies any other complaints or needs.
--- NOTE | 2017-01-11 23:15 | NUR ---
Joselito is awake in bed states he is feeling hungry at this time will eat his sandwich from dinner time, with chips and fruit provided.
[2017-01-12] MEDS: HYDROmorphone (DILAUDID) 4 MG TAB PO PRN ×5 (01:36→23:50)
[2017-01-12] MEDS ORDERED: HYDROmorphone (DILAUDID) 2 MG TAB ONE (05:15)
--- NOTE | 2017-01-12 06:07 | NUR ---
[facility] has not slept much throughout the night, requested pain medication and received 16 mg po Dilaudid per order, [facility] availability was 3 - 4 mg tablets and 2- 2 mg tablets, as [employer] unable to retrieve from Pharmacy.
[2017-01-12 07:57] VITALS: BP 143/93
[2017-01-12] MEDS: cefTRIAXone SODIUM 1,000 MG in SODIUM CHLORIDE 50 ML IV SCH (08:34)
[2017-01-12] MEDS: ENOXAPARIN 40 MG/0.4 ML (LOVENOX) SYR SC SCH (08:35)
[2017-01-12] MEDS: SODIUM CHLORIDE FLUSH 10 ML SYR IV PRN (08:36)
[2017-01-12] MEDS: CALCIUM CARBONATE 500 MG + VITAMIN D 200 IU TABLET PO SCH (08:36)
[2017-01-12] MEDS: predniSONE 10 MG (DELTASONE) TABLET PO SCH (08:36)
[2017-01-12] MEDS: lisINopril 10 MG (PRINIVIL) TABLET PO SCH (08:36)
[2017-01-12] MEDS: PARoxetine 20 MG (PAXIL) TAB PO SCH (08:37)
[2017-01-12] MEDS: guaiFENesin ER 600 MG (MUCINEX) TAB PO SCH ×2 (08:37→20:32)
[2017-01-12] MEDS: POLYETHYLENE GLYCOL 17 GM (MIRALAX) PACKET PO SCH (08:38)
[2017-01-12] MEDS ORDERED: SODIUM CHLORIDE 250 ML ONE (08:42)
[2017-01-12] MEDS: AZITHROMYCIN VIAL 500 MG in SODIUM CHLORIDE 250 ML IV SCH (09:13)
--- NOTE | 2017-01-12 09:21 | NUR ---
Pt alert/oriented x4, indep in room- IV Azithromycin infusing as ordered. Took AM meds without difficulty. Denies n/v. Will cont to monitor patient.
[2017-01-12] MEDS ORDERED: NS FLUSH 3 ML PRN IV (09:40)
--- NOTE | 2017-01-12 11:41 | Progress Note (E) ---
Progress Note SUBJECTIVE Overnight no major issues reported. Remains afebrile and on room air. Pain controlled with home oral regimen. Still on abx. Blood culture still pending. OBJECTIVE Vital Signs Date Time Temp Pulse Resp B/P Pulse Ox O2 Delivery O2 Flow Rate FiO2 01/12/17 07:57 97.4 67 20 143/93 96 Room air I & O 01/11/17 01/12/17 Cumulative From/Thru 19:00 07:00 01/10/17 02:43 - 01/12/17 06:15 Intake Total 537 ml 1311 ml 7561 ml Output Total 1250 ml 3250 ml 7350 ml Balance -713 ml -1939 ml 211 ml GEN: Sleeping but stirs readily to exam. HEENT: EOMI, clear sclerae, mildly dry oral mucosa. CV: Regular without murmur. PULM: CTA B with mildly diminished bases but no R/R/W. ABD: Soft, NT/ND with active bowel sounds. EXTR: Trace ankle edema. Warm, dry, well-perfused. INTEG: No rash. MS: Minimal tenderness to palpation at present. Pain tends to be worse with flexion/extension. Full ROM not assessed. NEURO: No focal motor neuro deficit at present. Lab-Past 14 Days, 35 Results 01/10/17 03:05: Alanine Aminotransferase (ALT/SGPT) 50, Albumin 4.5, Albumin/Globulin Ratio 1.363, Alkaline Phosphatase 76, Anion Gap 20.0H, Aspartate Amino Transf (AST/ SGOT) 32, BUN/Creatinine Ratio 17, Basophils # (Auto) 0.0, Basophils (%) (Auto) 0, Blood Urea Nitrogen 16, Calcium Level 9.2, Calcium/Ionized Calcium Ratio 3.8 , Calculated Osmolality 279L, Carbon Dioxide Level 28, Chloride Level 100, Creatinine 0.96, D-Dimer 1129*H, Eosinophils # (Auto) 0.1, Eosinophils (%) (Auto ) 2, Estimat Glomerular Filtration Rate 105.5, Estimated GFR (Non- 87.2, Glucose Level 118#H, Hematocrit 37.90L, Hemoglobin 12.7L, Lymphocytes # (Auto) 1.6, Lymphocytes (%) (Auto) 21, Mean Corpuscular Hemoglobin 29.7, Mean Corpuscular Hemoglobin Concent 33.5, Mean Corpuscular Volume 89, Mean Platelet Volume 8.6, Monocytes # (Auto) 0.6, Monocytes (%) (Auto ) 7, QY-Hsf-R-Type Natriuretic Peptide 404H, Neutrophils # (Auto) 5.3, Neutrophils (%) (Auto) 69H, Platelet Count 196, Potassium Level 4.0, Red Blood Count 4.28L, Red Cell Distribution Width 13.2, Sodium Level 144, Total Bilirubin 0.5, Total Protein 7.8, Troponin I < 0.012, White Blood Count 7.66 01/10/17 04:30: Adenovirus (PCR) Negative, Bordetella parapertussis DNA (PCR) Negative, Chlamydophila pneumoniae (PCR) Negative, Coronavirus Type 229E (PCR) Negative, Coronavirus Type HKU1 (PCR) Negative, Coronavirus Type NL63 (PCR) Negative, Coronavirus Type OC43 (PCR) Negative, Enterovirus/Rhinovirus (PCR) Negative, Human Metapneumovirus (PCR) Negative, Influenza Type A (H1) (PCR) Negative, Influenza Virus Type B (PCR) Negative, Mycoplasma pneumoniae (PCR) Negative, Parainfluenza Type 1 (PCR) Negative, Parainfluenza Type 2 (PCR) Negative, Parainfluenza Type 3 (PCR) Negative, Parainfluenza Type 4 (PCR) Negative, Respiratory Syncytial Virus (PCR) Negative, Urine Bacteria None seen, Urine Bilirubin Negative, Urine Blood Trace-intactH, Urine Clarity Clear, Urine Collection Type Clean catch, Urine Color Yellow, Urine Glucose (UA) Negative, Urine Ketones Negative, Urine Leukocyte Esterase Negative, Urine Microscopic RBC 0-2, Urine Nitrite Negative, Urine Protein Negative, Urine Specific [place] 1.020, Urine Squamous Epithelial Cells 0-2, Urine Urobilinogen 0.2, Urine WBC 0- 2, Urine pH 5.5, Volume Urine Centrifuged 12 ml 01/10/17 05:05: Lactic Acid Level 2.3H 01/11/17 05:10: Acinetobacter baumannii (PCR) Negative, Antimicrobial Susceptibility , Brit albicans (PCR) Negative, Brit glabrata (PCR) Negative, Brit krusei (PCR) Negative, Brit parapsilosis (PCR) Negative, Brit tropicalis ( PCR) Negative, Enterobacter cloacae complex (PCR) Negative, Enterobacteriaceae species (PCR) Negative, Enterococcus species (PCR) Negative, Escherichia coli ( PCR) Negative, Group B Streptococcus (PCR) Negative, Haemophilis influenzae (PCR ) Negative, KPC-Carbapenem Resistance Gene Negative, Klebsiella oxytoca (PCR) Negative, Klebsiella pneumoniae (PCR) Negative, Listeria monocytogenes (PCR) Negative, Neisseria meningitidis (PCR) Negative, Proteus species (PCR) Negative , Pseudomonas aeruginosa (PCR) Negative, Serratia marcescens (PCR) Negative, Staphylococcus aureus (PCR)(LAB) Negative, Staphylococcus species (PCR) Negative , Streptococcus pneumoniae (PCR) Positive*A, Streptococcus pyogenes (TEM-PCR) Negative, Streptococcus species (PCR) Positive*A, [place]/B-Vancomycin Resistance Genes Negative, mecA-Methicillin Resistance Gene Negative 01/11/17 05:50: Albumin 3.3#L, Anion Gap 12.4, Basophils # (Auto) 0.0, Basophils (%) (Auto) 0, Blood Urea Nitrogen 16, Calcium Level 8.1L, Carbon Dioxide Level 27, Chloride Level 106, Creatinine 0.81, Eosinophils # (Auto) 0.1, Eosinophils (%) (Auto) 1, Estimat Glomerular Filtration Rate 128.4, Estimated GFR (Non- 106.1, Glucose Level 90#, Hematocrit 29.60L, Hemoglobin 9.9L, Lymphocytes # ( Auto) 1.0, Lymphocytes (%) (Auto) 10L, Mean Corpuscular Hemoglobin 29.7, Mean Corpuscular Hemoglobin Concent 33.4, Mean Corpuscular Volume 89, Mean Platelet Volume 9.0, Monocytes # (Auto) 1.0, Monocytes (%) (Auto) 11, Neutrophils # (Auto ) 7.4, Neutrophils (%) (Auto) 78H, Phosphorus Level 3.5#, Platelet Count 133L, Potassium Level 3.7, Red Blood Count 3.33L, Red Cell Distribution Width 13.4, Sodium Level 142, White Blood Count 9.52 MICRO 01/10 Resp PCR Panel Negative 01/10 Blood culture Positive for GPC. PCR positive for Strep pneumoniae. C&S still pending. 01/10 Sputum culture Normal resp maria guadalupe IMAGING 01/10/17 CT ANGIO CHEST W PROCEDURE: CT angiography of the chest with contrast. TECHNIQUE: Multiple contiguous axial images were obtained through the chest after uneventful bolus administration of intravenous contrast. Reconstructed CTA MIP acquisitions were also performed. INDICATION: Cough and elevated d- dimer There is somewhat limited pulmonary arterial opacification, however, no filling defect is identified to indicate embolism. Dependent atelectasis and/or pneumonitis is seen in both lung bases. There is diffuse pulmonary venous congestion with small amount of right pleural fluid. There has been increase in diffuse degenerative change most particularly at the sternoclavicular joints. There is also an increase in diffuse osteopenia and mixed lytic and sclerotic changes throughout the osseous structures. IMPRESSION: No CTA evidence of pulmonary embolism. There is dependent atelectasis and/or pneumonitis in both lung bases. Mixed lytic and sclerotic foci throughout the bones may represent metabolic bone disorder or possible metastatic disease and clinical correlation is recommended. 01/10/17 CHEST PA/LAT (2 VIEW)* INDICATION: Cough Comparison is made to the study of 11/27/2016. There is mild cardiomegaly. Pulmonary vascularity is increased indicating mild venous congestion. No pneumothorax is identified. There is basilar atelectasis and/or pneumonitis. Areas of sclerosis within the spine and ribs are again noted with previous thoracic vertebral body augmentation. IMPRESSION: Developing pulmonary venous congestion with basilar atelectasis and /or pneumonitis. Mixed lytic and sclerotic lesion involving the osseous structures may be the result of metastatic disease with pathologic fractures. Clinical correlation is recommended ASSESSMENT Joselito Hanley is a 41 year old male admitted from ED 01/10 with acute respiratory distress and SIRS/sepsis attributed to community acquired pneumonia. Blood culture turned positive for Streptococcus pneumoniae. He has underlying multiple myeloma as well as other chronic problems. PLAN * SIRS/Sepsis: Resolving. Attributed to pneumonia. * Acute Respiratory Distress: Resolving rapidly. Oxygen protocol, acapella. * Community Acquired Pneumonia due to Strep pneumoniae: Blood culture pending but PCR positive as noted. Sputum pending. Resp PCR panel negative. Got pip- tazo in ED. On admit, azithromycin and ceftriaxone were ordered. Added guaifenesin. * Bacteremia due to Streptococcus pneumoniae: Due to pneumonia. Culture pending. Abx as above. * Fever: Resolved Acetaminophen * Multiple Myeloma: Has lytic/lastic lesions in spine. Radiation therapy in [place]. [facility] care at [facility]. Obtain updated notes from Dr. Winter's office. * Dehydration: NS bolus x 2 given in ED. Maintenance fluids until he is tolerating PO intake. * F/E/N: Regular diet. IVF as above. Peripheral IV. * Prophylaxis: Enoxaparin * Code Status: Full * Dispo: Inpatient. Expect 3 day stay. CHRONIC ISSUES * GERD: Off pantoprazole. Observe. * Anxiety: Diazepam * HTN: Indapamide, lisinopril * Depression: Paroxetine * Hypogonadism: Resume testosterone at discharge. * MAXWELL: Does not wear CPAP at home. * Diabetes Mellitus: Reportedly diet controlled. For now, observe. * Chronic Pain: Hydromorphone * Constipation: Bowel regimen * Muscle Spasms: Cyclobenzaprine. RUSTAM SIFUENTES MD Jan 12, 2017 11:37
--- NOTE | 2017-01-12 17:04 | NUR ---
Dilaudid 16mg PO given as ordered at this time for spine pain rated 8/10.
--- NOTE | 2017-01-12 18:15 | NUR ---
Pt eating supper in bed, denies needs at this time.
[2017-01-12 19:56] VITALS: BP 122/78
[2017-01-12] MEDS: INDAPAMIDE 1.25 MG PO SCH (20:32)
[2017-01-12] MEDS: CYCLOBENZAPRINE 10 MG (FLEXERIL) TAB PO PRN (23:50)
--- NOTE | 2017-01-13 07:06 | NUR ---
Patient rests in bed throughout night without needs. Up to shower and back to bed after taking pain medication and flexiril to help him sleep. No needs at this time.
[2017-01-13 07:51] VITALS: BP 142/85
[2017-01-13] MEDS: POLYETHYLENE GLYCOL 17 GM (MIRALAX) PACKET PO SCH (09:00)
--- NOTE | 2017-01-13 09:30 | Progress Note (E) ---
Progress Note SUBJECTIVE No issues overnight. Still waiting on blood culture results. Afebrile. Room air. OBJECTIVE Vital Signs Date Time Temp Pulse Resp B/P Pulse Ox O2 Delivery O2 Flow Rate FiO2 01/13/17 07:51 97.6 67 18 142/85 96 Room air I & O 01/12/17 01/13/17 Cumulative From/Thru 19:00 07:00 01/10/17 02:43 - 01/13/17 06:25 Intake Total 1056 ml 837 ml 9454 ml Output Total 50 ml 1250 ml 8650 ml Balance 1006 ml -413 ml 804 ml GEN: Sleeping but stirs readily to exam. HEENT: EOMI, clear sclerae, mildly dry oral mucosa. CV: Regular without murmur. PULM: CTA B with mildly diminished bases but no R/R/W. ABD: Soft, NT/ND with active bowel sounds. EXTR: Trace ankle edema. Warm, dry, well-perfused. INTEG: No rash. MS: Minimal tenderness to palpation at present. Pain tends to be worse with flexion/extension. Full ROM not assessed. NEURO: No focal motor neuro deficit at present. Lab-Past 14 Days, 35 Results 01/10/17 03:05: Alanine Aminotransferase (ALT/SGPT) 50, Albumin 4.5, Albumin/Globulin Ratio 1.363, Alkaline Phosphatase 76, Anion Gap 20.0H, Aspartate Amino Transf (AST/ SGOT) 32, BUN/Creatinine Ratio 17, Basophils # (Auto) 0.0, Basophils (%) (Auto) 0, Blood Urea Nitrogen 16, Calcium Level 9.2, Calcium/Ionized Calcium Ratio 3.8 , Calculated Osmolality 279L, Carbon Dioxide Level 28, Chloride Level 100, Creatinine 0.96, D-Dimer 1129*H, Eosinophils # (Auto) 0.1, Eosinophils (%) (Auto ) 2, Estimat Glomerular Filtration Rate 105.5, Estimated GFR (Non- 87.2, Glucose Level 118#H, Hematocrit 37.90L, Hemoglobin 12.7L, Lymphocytes # (Auto) 1.6, Lymphocytes (%) (Auto) 21, Mean Corpuscular Hemoglobin 29.7, Mean Corpuscular Hemoglobin Concent 33.5, Mean Corpuscular Volume 89, Mean Platelet Volume 8.6, Monocytes # (Auto) 0.6, Monocytes (%) (Auto ) 7, CM-Ybf-U-Type Natriuretic Peptide 404H, Neutrophils # (Auto) 5.3, Neutrophils (%) (Auto) 69H, Platelet Count 196, Potassium Level 4.0, Red Blood Count 4.28L, Red Cell Distribution Width 13.2, Sodium Level 144, Total Bilirubin 0.5, Total Protein 7.8, Troponin I < 0.012, White Blood Count 7.66 01/10/17 04:30: Adenovirus (PCR) Negative, Bordetella parapertussis DNA (PCR) Negative, Chlamydophila pneumoniae (PCR) Negative, Coronavirus Type 229E (PCR) Negative, Coronavirus Type HKU1 (PCR) Negative, Coronavirus Type NL63 (PCR) Negative, Coronavirus Type OC43 (PCR) Negative, Enterovirus/Rhinovirus (PCR) Negative, Human Metapneumovirus (PCR) Negative, Influenza Type A (H1) (PCR) Negative, Influenza Virus Type B (PCR) Negative, Mycoplasma pneumoniae (PCR) Negative, Parainfluenza Type 1 (PCR) Negative, Parainfluenza Type 2 (PCR) Negative, Parainfluenza Type 3 (PCR) Negative, Parainfluenza Type 4 (PCR) Negative, Respiratory Syncytial Virus (PCR) Negative, Urine Bacteria None seen, Urine Bilirubin Negative, Urine Blood Trace-intactH, Urine Clarity Clear, Urine Collection Type Clean catch, Urine Color Yellow, Urine Glucose (UA) Negative, Urine Ketones Negative, Urine Leukocyte Esterase Negative, Urine Microscopic RBC 0-2, Urine Nitrite Negative, Urine Protein Negative, Urine Specific Terral 1.020, Urine Squamous Epithelial Cells 0-2, Urine Urobilinogen 0.2, Urine WBC 0- 2, Urine pH 5.5, Volume Urine Centrifuged 12 ml 01/10/17 05:05: Lactic Acid Level 2.3H 01/11/17 05:10: Acinetobacter baumannii (PCR) Negative, Antimicrobial Susceptibility , Brit albicans (PCR) Negative, Brit glabrata (PCR) Negative, Brit krusei (PCR) Negative, Brit parapsilosis (PCR) Negative, Brit tropicalis ( PCR) Negative, Enterobacter cloacae complex (PCR) Negative, Enterobacteriaceae species (PCR) Negative, Enterococcus species (PCR) Negative, Escherichia coli ( PCR) Negative, Group B Streptococcus (PCR) Negative, Haemophilis influenzae (PCR ) Negative, KPC-Carbapenem Resistance Gene Negative, Klebsiella oxytoca (PCR) Negative, Klebsiella pneumoniae (PCR) Negative, Listeria monocytogenes (PCR) Negative, Neisseria meningitidis (PCR) Negative, Proteus species (PCR) Negative , Pseudomonas aeruginosa (PCR) Negative, Serratia marcescens (PCR) Negative, Staphylococcus aureus (PCR)(LAB) Negative, Staphylococcus species (PCR) Negative , Streptococcus pneumoniae (PCR) Positive*A, Streptococcus pyogenes (TEM-PCR) Negative, Streptococcus species (PCR) Positive*A, Tierra/B-Vancomycin Resistance Genes Negative, mecA-Methicillin Resistance Gene Negative 01/11/17 05:50: Albumin 3.3#L, Anion Gap 12.4, Basophils # (Auto) 0.0, Basophils (%) (Auto) 0, Blood Urea Nitrogen 16, Calcium Level 8.1L, Carbon Dioxide Level 27, Chloride Level 106, Creatinine 0.81, Eosinophils # (Auto) 0.1, Eosinophils (%) (Auto) 1, Estimat Glomerular Filtration Rate 128.4, Estimated GFR (Non- 106.1, Glucose Level 90#, Hematocrit 29.60L, Hemoglobin 9.9L, Lymphocytes # ( Auto) 1.0, Lymphocytes (%) (Auto) 10L, Mean Corpuscular Hemoglobin 29.7, Mean Corpuscular Hemoglobin Concent 33.4, Mean Corpuscular Volume 89, Mean Platelet Volume 9.0, Monocytes # (Auto) 1.0, Monocytes (%) (Auto) 11, Neutrophils # (Auto ) 7.4, Neutrophils (%) (Auto) 78H, Phosphorus Level 3.5#, Platelet Count 133L, Potassium Level 3.7, Red Blood Count 3.33L, Red Cell Distribution Width 13.4, Sodium Level 142, White Blood Count 9.52 MICRO 01/10 Resp PCR Panel Negative 01/10 Blood culture Positive for GPC. PCR positive for Strep pneumoniae. C&S still pending. 01/10 Sputum culture Normal resp maria guadalupe IMAGING 01/10/17 CT ANGIO CHEST W PROCEDURE: CT angiography of the chest with contrast. TECHNIQUE: Multiple contiguous axial images were obtained through the chest after uneventful bolus administration of intravenous contrast. Reconstructed CTA MIP acquisitions were also performed. INDICATION: Cough and elevated d- dimer There is somewhat limited pulmonary arterial opacification, however, no filling defect is identified to indicate embolism. Dependent atelectasis and/or pneumonitis is seen in both lung bases. There is diffuse pulmonary venous congestion with small amount of right pleural fluid. There has been increase in diffuse degenerative change most particularly at the sternoclavicular joints. There is also an increase in diffuse osteopenia and mixed lytic and sclerotic changes throughout the osseous structures. IMPRESSION: No CTA evidence of pulmonary embolism. There is dependent atelectasis and/or pneumonitis in both lung bases. Mixed lytic and sclerotic foci throughout the bones may represent metabolic bone disorder or possible metastatic disease and clinical correlation is recommended. 01/10/17 CHEST PA/LAT (2 VIEW)* INDICATION: Cough Comparison is made to the study of 11/27/2016. There is mild cardiomegaly. Pulmonary vascularity is increased indicating mild venous congestion. No pneumothorax is identified. There is basilar atelectasis and/or pneumonitis. Areas of sclerosis within the spine and ribs are again noted with previous thoracic vertebral body augmentation. IMPRESSION: Developing pulmonary venous congestion with basilar atelectasis and /or pneumonitis. Mixed lytic and sclerotic lesion involving the osseous structures may be the result of metastatic disease with pathologic fractures. Clinical correlation is recommended ASSESSMENT Joselito Hanley is a 41 year old male admitted from ED 01/10 with acute respiratory distress and SIRS/sepsis attributed to community acquired pneumonia. Blood culture turned positive for Streptococcus pneumoniae. He has underlying multiple myeloma as well as other chronic problems. Sepsis and respiratory distress resolved rapidly with therapies as outlined. PLAN * SIRS/Sepsis: Resolved. Attributed to pneumonia. * Acute Respiratory Distress: Resolved rapidly. Oxygen protocol, acapella. * Community Acquired Pneumonia due to Strep pneumoniae: Blood culture pending but PCR positive as noted. Sputum pending. Resp PCR panel negative. Got pip- tazo in ED. On admit, azithromycin and ceftriaxone were ordered. Added guaifenesin. * Bacteremia due to Streptococcus pneumoniae: Due to pneumonia. Culture still pending... waiting on C&S. Abx as above. New culture 01/13. * Fever: Resolved Acetaminophen * Multiple Myeloma: Has lytic/lastic lesions in spine. Radiation therapy in [place]. Oncology care at [facility]. Obtain updated notes from Dr. Winter's office. * Dehydration: Resolved. NS bolus x 2 given in ED. Maintenance fluids until he is tolerating PO intake. * F/E/N: Regular diet. IVF as above. Peripheral IV. * Prophylaxis: Enoxaparin * Code Status: Full * Dispo: Inpatient. Discharge in AM 01/14 if surveillance culture negative. CHRONIC ISSUES * GERD: Off pantoprazole. Observe. * Anxiety: Diazepam * HTN: Indapamide, lisinopril * Depression: Paroxetine * Hypogonadism: Resume testosterone at discharge. * MAXWELL: Does not wear CPAP at home. * Diabetes Mellitus: Reportedly diet controlled. For now, observe. * Chronic Pain: Hydromorphone * Constipation: Bowel regimen * Muscle Spasms: Cyclobenzaprine. RUSTAM SIFUENTES MD Jan 13, 2017 09:30
[2017-01-13] MEDS: HYDROmorphone (DILAUDID) 4 MG TAB PO PRN ×3 (09:32→19:13)
[2017-01-13] MEDS: ENOXAPARIN 40 MG/0.4 ML (LOVENOX) SYR SC SCH (09:32)
[2017-01-13] MEDS: PARoxetine 20 MG (PAXIL) TAB PO SCH (09:33)
[2017-01-13] MEDS: NS FLUSH 3 ML DAILY IV SCH (09:33)
[2017-01-13] MEDS: predniSONE 10 MG (DELTASONE) TABLET PO SCH (09:33)
[2017-01-13] MEDS: CALCIUM CARBONATE 500 MG + VITAMIN D 200 IU TABLET PO SCH (09:33)
[2017-01-13] MEDS: guaiFENesin ER 600 MG (MUCINEX) TAB PO SCH ×2 (09:33→20:18)
[2017-01-13] MEDS: lisINopril 10 MG (PRINIVIL) TABLET PO SCH (09:34)
[2017-01-13] MEDS: cefTRIAXone SODIUM 1,000 MG in SODIUM CHLORIDE 50 ML IV SCH (09:34)
--- NOTE | 2017-01-13 09:40 | NUR ---
@ 4174- Dr. Aguilar at bedside. @4401- Lab in room for blood culture. Pt takes am meds along with Dilaudid 16mg PO as ordered. IV Rocephin infusing.
--- NOTE | 2017-01-13 16:03 | NUR ---
Pt asks for pain meds- Dilaudid 16mg PO given as ordered. Denies further needs.
[2017-01-13 19:55] VITALS: BP 127/86
[2017-01-13] MEDS: INDAPAMIDE 1.25 MG PO SCH (20:18)
[2017-01-14] MEDS: HYDROmorphone (DILAUDID) 4 MG TAB PO PRN ×2 (00:10→09:50)
[2017-01-14] MEDS: CYCLOBENZAPRINE 10 MG (FLEXERIL) TAB PO PRN (00:10)
--- NOTE | 2017-01-14 06:27 | NUR ---
Patient rests in bed throughout the night without needs. Sleeps in bed after administration of Dilaudid PO and Flexeril, See MAR. This AM, patient states that he doesn't want to get up to get his weight, will get up before breakfast to obtain weight. No further needs at this time.
[2017-01-14 07:37] VITALS: BP 144/81
--- NOTE | 2017-01-14 09:41 | NUR ---
(late posting from 01-10)* NUTRITION ASSESSMENT Level II Patient: Joselito Hanley Age/Sex: 41/M Date Assessed: 01-10-17 ASSESSMENT Pertinent History: Patient admitted with pneumonia and multiple myeloma and screened at high nutritional risk secondary to diagnosis and weight fluctuations. PMHx includes multiple myeloma, chronic headaches, chronic pain, HTN and osteoporosis. He lives with his mother on disability. Pt. has history of unintentional weight loss, about 58# over the past 1-2 years. At last admission in 2015, he weighed 227# and was taking Boost and Ensure at home to supplement kcals. He weighed 238# at an ED visit on 11-27-16, and was admitted now weighing 251#. Meds/Nutrition: calcium/vitamin D, Miralax, Prednisone, NS Weight: 251.4#/114.3 kg Height: 74 inches Body Mass Index (BMI): 32.5 [place] Body Weight : 190#/86.3 kg % IBW: 132% GASTROINTESTINAL Appetite: poor; ate 0% this morning Diet Order: regular Unintentional loss of >10 lbs. in 3 months: N Difficult to chew/swallow: N Diabetes: N Relevant Labs: glucose 118 Calculations for Nutritional Assessment Estimated calorie needs: 22-25 kcals/kg = 2,500-2,850 kcals Estimated protein needs: 1.0-1.2 g/kg ABW = 93-111 g./day DIAGNOSIS 1. Nutrition Diagnosis: Unintentional weight gain related to (unsurefluid??) as evidenced by documented 13.4# weight gain in the past 2 weeks. NUTRITIONAL INTERVENTION Goal: Patient will receive adequate nutrition to meet his needs. Plan: Requested pt. be reweighed today by [employer] ENGINE[employer] just to double-check that his admitting weight is accurate. If so, pt. can D/C Ensure and Boost at home as his BMI is now over 30. Will monitor intake for adequacy. MONITORING & EVALUATION _X_ Monitor patients menu selections _X_ Monitor patients food intake per nursing notes __ Monitor NPO/clear liquid days __ Monitor lab values __ Monitor I&O _X_ Other--monitor weight Comments: *I was waiting for [employer]INE[employer] to reweigh patient before posting on 01-10, but then forgot to post.
[2017-01-14] MEDS: ENOXAPARIN 40 MG/0.4 ML (LOVENOX) SYR SC SCH (09:49)
[2017-01-14] MEDS: NS FLUSH 3 ML DAILY IV SCH (09:49)
[2017-01-14] MEDS: PARoxetine 20 MG (PAXIL) TAB PO SCH (09:49)
[2017-01-14] MEDS: cefTRIAXone SODIUM 1,000 MG in SODIUM CHLORIDE 50 ML IV SCH (09:49)
[2017-01-14] MEDS: POLYETHYLENE GLYCOL 17 GM (MIRALAX) PACKET PO SCH (09:49)
[2017-01-14] MEDS: lisINopril 10 MG (PRINIVIL) TABLET PO SCH (09:49)
[2017-01-14] MEDS: predniSONE 10 MG (DELTASONE) TABLET PO SCH (09:49)
[2017-01-14] MEDS: CALCIUM CARBONATE 500 MG + VITAMIN D 200 IU TABLET PO SCH (09:49)
[2017-01-14] MEDS: guaiFENesin ER 600 MG (MUCINEX) TAB PO SCH (09:49)
--- NOTE | 2017-01-14 10:00 | NUR ---
Patient slept in this morning but was cooperative with cares once he was awake. No shortness of breath on room air.
[2017-01-14 11:02] LABS: MEAN CORPUSCULAR HEMOGLOBIN 29.7 PG (26.0-34.0); MEAN CORPUSCULAR VOLUME 87 FL (80-100); MEAN PLATELET VOLUME 8.9 FL (6.0-9.5); PLATELET COUNT 173 10^3uL (150-450); WHITE BLOOD COUNT 9.43 10^3uL (4.0-11.0)
[2017-01-14 11:07] LABS: BAND NEUTROPHILS % 0 % (0-6); EOSINOPHILS % 1 % (0-4); LYMPHOCYTES # 0.9 #; MONOCYTES # 0.2 #; MONOCYTES % 2 % (3-11); RBC MORPH NORMAL (NORMAL); SEGMENTED NEUTROPHILS % 87 % (51-67); TOTAL CELLS COUNTED 100
[2017-01-14 11:19] LABS: ANION GAP 19.9 MEQ/L (3-15)
[2017-01-14] MEDS ORDERED: CEFD300C PO (11:28)
--- NOTE | 2017-01-14 12:04 | Progress Note (E) ---
Progress Note Joselito Hanley is a 41 year old male admitted from ED 01/10 with acute respiratory distress and SIRS/sepsis attributed to community acquired pneumonia. Blood culture turned positive for Streptococcus pneumoniae. He has underlying multiple myeloma as well as other chronic problems. Sepsis and respiratory distress resolved rapidly with therapies as utilized. Mr Hanley is feeling much better and does wish to go home today. heart shows a RRR , without murmur lungs are CTA, bilaterally abdomen is soft,non tender extremities- show no c/c/ edema Assessment: * SIRS/Sepsis: Resolved. Attributed to pneumonia. * Acute Respiratory Distress: Resolved rapidly. Oxygen protocol, acapella. * Community Acquired Pneumonia due to Strep pneumoniae: Blood culture pending but PCR positive as noted. Sputum pending. Resp PCR panel negative. Got pip- tazo in ED. On admit, azithromycin and ceftriaxone were ordered. Added guaifenesin. * Bacteremia due to Streptococcus pneumoniae: Due to pneumonia. . Abx as above. New culture 01/13. * Fever: Resolved Acetaminophen * Multiple Myeloma: Has lytic/lastic lesions in spine. Radiation therapy in [place]. Oncology care at [facility]. * Dehydration: Resolved. NS bolus x 2 given in ED. Maintenance fluids until he is tolerating PO intake. * F/E/N: Regular diet. IVF as above. Peripheral IV. * Prophylaxis: Enoxaparin * Code Status: Full Plan : * Dispo: Inpatient. Discharge later today. CHRONIC ISSUES * GERD: Off pantoprazole. Observe. * Anxiety: Diazepam * HTN: Indapamide, lisinopril * Depression: Paroxetine * Hypogonadism: Resume testosterone at discharge. * MAXWELL: Does not wear CPAP at home. * Diabetes Mellitus: Reportedly diet controlled. For now, observe. * Chronic Pain: Hydromorphone * Constipation: Bowel regimen KELLI RIVERA DO Jan 14, 2017 12:04
--- NOTE | 2017-01-14 12:23 | Discharge Summary (E FT) ---
Discharge Summary (E FT) Admit Date Jan 10, 2017 at 06:01 Discharge Date December Admitting Provider Sebas Abebe MD Primary Care Provider Jesu Hill MD Attending Provider Sebas Abebe MD Consulting Provider Hospital Course Summary : Alanine Aminotransferase (ALT/SGPT) 50, Albumin 4.5, Albumin/Globulin Ratio 1.363, Alkaline Phosphatase 76, Anion Gap 20.0H, Aspartate Amino Transf (AST/ SGOT) 32, BUN/Creatinine Ratio 17, Basophils # (Auto) 0.0, Basophils (%) (Auto) 0, Blood Urea Nitrogen 16, Calcium Level 9.2, Calcium/Ionized Calcium Ratio 3.8 , Calculated Osmolality 279L, Carbon Dioxide Level 28, Chloride Level 100, Creatinine 0.96, D-Dimer 1129*H, Eosinophils # (Auto) 0.1, Eosinophils (%) (Auto ) 2, Estimat Glomerular Filtration Rate 105.5, Estimated GFR (Non- 87.2, Glucose Level 118#H, Hematocrit 37.90L, Hemoglobin 12.7L, Lymphocytes # (Auto) 1.6, Lymphocytes (%) (Auto) 21, Mean Corpuscular Hemoglobin 29.7, Mean Corpuscular Hemoglobin Concent 33.5, Mean Corpuscular Volume 89, Mean Platelet Volume 8.6, Monocytes # (Auto) 0.6, Monocytes (%) (Auto ) 7, CA-Vud-P-Type Natriuretic Peptide 404H, Neutrophils # (Auto) 5.3, Neutrophils (%) (Auto) 69H, Platelet Count 196, Potassium Level 4.0, Red Blood Count 4.28L, Red Cell Distribution Width 13.2, Sodium Level 144, Total Bilirubin 0.5, Total Protein 7.8, Troponin I < 0.012, White Blood Count 7.66 01/10/17 04:30: Adenovirus (PCR) Negative, Bordetella parapertussis DNA (PCR) Negative, Chlamydophila pneumoniae (PCR) Negative, Coronavirus Type 229E (PCR) Negative, Coronavirus Type HKU1 (PCR) Negative, Coronavirus Type NL63 (PCR) Negative, Coronavirus Type OC43 (PCR) Negative, Enterovirus/Rhinovirus (PCR) Negative, Human Metapneumovirus (PCR) Negative, Influenza Type A (H1) (PCR) Negative, Influenza Virus Type B (PCR) Negative, Mycoplasma pneumoniae (PCR) Negative, Parainfluenza Type 1 (PCR) Negative, Parainfluenza Type 2 (PCR) Negative, Parainfluenza Type 3 (PCR) Negative, Parainfluenza Type 4 (PCR) Negative, Respiratory Syncytial Virus (PCR) Negative, Urine Bacteria None seen, Urine Bilirubin Negative, Urine Blood Trace-intactH, Urine Clarity Clear, Urine Collection Type Clean catch, Urine Color Yellow, Urine Glucose (UA) Negative, Urine Ketones Negative, Urine Leukocyte Esterase Negative, Urine Microscopic RBC 0-2, Urine Nitrite Negative, Urine Protein Negative, Urine Specific Peck 1.020, Urine Squamous Epithelial Cells 0-2, Urine Urobilinogen 0.2, Urine WBC 0- 2, Urine pH 5.5, Volume Urine Centrifuged 12 ml 01/10/17 05:05: Lactic Acid Level 2.3H 01/11/17 05:10: Acinetobacter baumannii (PCR) Negative, Antimicrobial Susceptibility , Brit albicans (PCR) Negative, Brit glabrata (PCR) Negative, Brit krusei (PCR) Negative, Brit parapsilosis (PCR) Negative, Brit tropicalis ( PCR) Negative, Enterobacter cloacae complex (PCR) Negative, Enterobacteriaceae species (PCR) Negative, Enterococcus species (PCR) Negative, Escherichia coli ( PCR) Negative, Group B Streptococcus (PCR) Negative, Haemophilis influenzae (PCR ) Negative, KPC-Carbapenem Resistance Gene Negative, Klebsiella oxytoca (PCR) Negative, Klebsiella pneumoniae (PCR) Negative, Listeria monocytogenes (PCR) Negative, Neisseria meningitidis (PCR) Negative, Proteus species (PCR) Negative , Pseudomonas aeruginosa (PCR) Negative, Serratia marcescens (PCR) Negative, Staphylococcus aureus (PCR)(LAB) Negative, Staphylococcus species (PCR) Negative , Streptococcus pneumoniae (PCR) Positive*A, Streptococcus pyogenes (TEM-PCR) Negative, Streptococcus species (PCR) Positive*A, Tierra/B-Vancomycin Resistance Genes Negative, mecA-Methicillin Resistance Gene Negative 01/11/17 05:50: Albumin 3.3#L, Anion Gap 12.4, Basophils # (Auto) 0.0, Basophils (%) (Auto) 0, Blood Urea Nitrogen 16, Calcium Level 8.1L, Carbon Dioxide Level 27, Chloride Level 106, Creatinine 0.81, Eosinophils # (Auto) 0.1, Eosinophils (%) (Auto) 1, Estimat Glomerular Filtration Rate 128.4, Estimated GFR (Non- 106.1, Glucose Level 90#, Hematocrit 29.60L, Hemoglobin 9.9L, Lymphocytes # ( Auto) 1.0, Lymphocytes (%) (Auto) 10L, Mean Corpuscular Hemoglobin 29.7, Mean Corpuscular Hemoglobin Concent 33.4, Mean Corpuscular Volume 89, Mean Platelet Volume 9.0, Monocytes # (Auto) 1.0, Monocytes (%) (Auto) 11, Neutrophils # (Auto ) 7.4, Neutrophils (%) (Auto) 78H, Phosphorus Level 3.5#, Platelet Count 133L, Potassium Level 3.7, Red Blood Count 3.33L, Red Cell Distribution Width 13.4, Sodium Level 142, White Blood Count 9.52 MICRO 01/10 Resp PCR Panel Negative 01/10 Blood culture Positive for GPC. PCR positive for Strep pneumoniae. C&S still pending. 01/10 Sputum Normal resp. maria guadalupe Joselito Hanley is a 41 year old male admitted from ED 01/10 with acute respiratory distress and SIRS/sepsis attributed to community acquired pneumonia. Blood culture showed positive for Streptococcus pneumoniae. He has underlying multiple myeloma as well as other chronic problems. Sepsis and respiratory distress resolved rapidly with therapies as outlined.Pt. did well on the antibiotics we utilized. Assessment: * SIRS/Sepsis: Resolved. Attributed to pneumonia. * Acute Respiratory Distress: Resolved rapidly. Oxygen protocol, acapella. * Community Acquired Pneumonia due to Strep pneumoniae: PCR positive as noted. Resp PCR panel negative. Got pip-tazo in ED. On admit, azithromycin and ceftriaxone were ordered. Added guaifenesin. * Bacteremia due to Streptococcus pneumoniae: Due to pneumonia. Abx as above. New culture 01/13. * Fever: Resolved Acetaminophen * Multiple Myeloma: Has lytic/lastic lesions in spine. Radiation therapy in [place]. [facility] care at [facility]. Obtain updated notes from Dr. Winter's office. * Dehydration: Resolved. NS bolus x 2 given in ED. Maintenance fluids until he is tolerating PO intake. * F/E/N: Regular diet. IVF as above. Peripheral IV. * Prophylaxis: Enoxaparin * Code Status: Full * Disposition : Discharge to home. Discharge Disposition discharged to home. New Medications: Cefdinir (Cefdinir) 300 Mg Capsule 300 MG PO Q12HR #20 CAP Continued Medications: Acyclovir (Acyclovir) 200 Mg Capsule 200 MG PO BID #60 Calcium Carbonate/Vitamin D3 (Calcium 600 + Vit D 800 Tab) 1 Each Tablet 2 TAB PO BID TAB Cyclobenzaprine HCl (Flexeril) 10 Mg Tablet 10 MG PO TID PRN MUSCLE SPASMS Ref 0 TAB Diazepam (Diazepam) 5 Mg Tablet 5 MG PO TID PRN ANXIETY #60 Diphenhydramine HCl (Benadryl Allergy) 25 Mg Tablet 25 MG PO NEEDED TAB Fluticasone/Vilanterol (Breo Ellipta 100-25 mcg Inh) 1 Each Aer.pow.ba 1 PUFF IH DAILY INHALER Furosemide (Furosemide) 40 Mg Tablet 40 MG PO DAILY PRN EDEMA #30 Hydromorphone HCl (Hydromorphone) 8 Mg Tablet 16 MG PO Q3HR PRN PAIN TAB Indapamide (Indapamide) 1.25 Mg Tablet 1.25 MG PO HS TAB Lisinopril (Lisinopril) 10 Mg Tablet 10 MG PO DAILY TAB Paroxetine HCl (Paroxetine HCl) 40 Mg Tablet 40 MG PO DAILY TAB Polyethylene Glycol 3350 (Polyethylene Glycol 3350) 255 Gm Powder 17 PO Daily as directed Constipation Ref 0 JAR Potassium Chloride (Potassium Chloride) 20 Meq Tab.er.prt 40 MEQ PO DAILY #60 Prednisone (Prednisone) 10 Mg Tablet 10 MG PO DAILY Inflammation Ref 0 TAB Testosterone (Androgel) 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 Copies to: Additional Provider: Jesu Hill MD End of Report . KELLI RIVERA DO Jan 14, 2017 12:23
--- NOTE | 2017-01-14 12:30 | NUR ---
Delta Glover, Pharm. D. Candidate reviewed discharge medications with patient. Provided patient handout information for new medications. No additional questions or concerns. Patient verbalized understanding of medications.
--- NOTE | 2017-01-14 13:14 | NUR ---
MULTIDISCIPLINARY MTG/DR. RIVERA: Pt. is on room air and continues to receive IV antibiotics. Pt. has improved. Will check labs today and if everything is better Pt. will discharge home. No discharge needs identified at this time.
--- NOTE | 2017-01-14 14:25 | NUR ---
Gave the patient discharge instructions. Informed him of follow up appointment scheduled for the . Educated the patient on the importance of taking all antibiotics until finished and not to stop taking them even if feeling better. Patient demonstrated verbal understanding of the instructions.
--- NOTE | 2017-01-14 14:28 | NUR ---
Patient dismissed ambulatory accompanied by this nurse.
[2017-01-14] MEDS ORDERED: CEFDINIR 300 MG (OMNICEF) CAPSULE PO SCH (21:00)
== END 2017-01-14 14:28 | disposition home or self-care (01) | DRG 871 ==
LOC: ED 02:41 → MED/SURG 06:01 → UNDOADMIN 06:01
PROVIDERS: ADMIT Internal Medicine; ATTEND Internal Medicine
DX: A40.3 Sepsis due to Streptococcus pneumoniae (principal); J13 Pneumonia due to Streptococcus pneumoniae; C90.00 Multiple myeloma not having achieved remission; E86.0 Dehydration; I10 Essential (primary) hypertension; M81.0 Age-related osteoporosis without current pathological fracture; G89.29 Other chronic pain; F41.9 Anxiety disorder, unspecified; F32.9 Major depressive disorder, single episode, unspecified
CPT/HCPCS: 36415; 71020; 80048; 80053; 80069; 81003; 81015; 83605; 83880; 84484; 85025; 85379; 87040; 87070; 87077; 87150; 87186; 87205; 87486; 87581; 87633; 87798; 93005; 94669; 94760; 96361; 96374; 96375; 99285

== ENCOUNTER 2017-02-16 20:12 | Emergency (ER) | payer MEDICARE ==
[~2017-02-16] VITALS: Ht 188 cm; Wt 109.1 kg
[~2017-02-16 20:12] MED LIST changes: -ONDA8TAB6 PO; -OXYC10TA7 PO; -PROM25TA14 PO
[2017-02-16] MEDS ORDERED: OXYC10TA7 PO (20:28)
[2017-02-16] MEDS ORDERED: ONDA8TAB6 PO (20:28)
[2017-02-16] MEDS ORDERED: PROMETHAZINE 25 MG/ML (PHENERGAN) 1 ML VIAL IM ONE (20:55)
[2017-02-16 21:08] LABS: BASOPHILS % (AUTO) 0 % (0-2); EOSINOPHILS # (AUTO) 0.1 10^3uL; EOSINOPHILS % (AUTO) 1 % (0-4); LYMPHOCYTES # (AUTO) 1.5 X10^3; MEAN CORPUSCULAR HEMOGLOBIN 29.9 PG (26.0-34.0); MEAN CORPUSCULAR VOLUME 88 FL (80-100); MEAN PLATELET VOLUME 9.5 FL (6.0-9.5); MONOCYTES # (AUTO) 0.6 X10^3; MONOCYTES % (AUTO) 6 % (3-11); NEUTROPHILS % (AUTO) 76 % (51-67); PLATELET COUNT 235 10^3uL (150-450); WHITE BLOOD COUNT 9.25 10^3uL (4.0-11.0)
[2017-02-16 21:17] LABS: ALBUMIN 5.3 g/dL (3.4-5.0); ANION GAP 20.6 MEQ/L (3-15); TOTAL PROTEIN 9.9 g/dL (6.4-8.5)
--- NOTE | 2017-02-16 21:28 | NUR ---
PHENERGAN WAS GIVEN IM NOT IV SO NO START/STOP TIMES
--- NOTE | 2017-02-16 21:55 | Diagnostic Imaging Report ---
Indication: Nausea and vomiting, undergoing treatment for multiple myeloma. Discussion: Supine and upright views of the abdomen were obtained comparison 11/27/2016. Low lung volumes with bibasilar atelectasis. Cement augmentation is noted within the mid thoracic spine. Old right rib fractures are noted, stable. Osseous irregularity of the left 11th rib is stable. Normal bowel gas pattern. No evidence of pneumatosis or pneumoperitoneum. Cement augmentation is again noted within the lumbar spine. The hip joints appear within normal limits. Impression: 1. No acute abnormality identified within either the abdomen or chest. Dictated by: Dictated on workstation # [id number]
[2017-02-16] MEDS ORDERED: HYDROmorphone 1 MG/ML (DILAUDID) SYRINGE IV ONE (22:30)
[2017-02-16 22:50] LABS: BILIRUBIN,URINE Negative (Negative); COLOR,URINE Yellow; GLUCOSE, URINE (UA) Negative (Negative); LEUKOCYTE ESTERASE, URINE Negative (Negative); PH,URINE 5.5 (5.0 - 8.0); UROBILINOGEN,URINE 0.2 mg/dL (0.2-1.0)
[2017-02-16 22:52] LABS: CLARITY,URINE Slightly Cloudy; URINE CENTRIFUGED VOLUME 12 mL
[2017-02-16] MEDS ORDERED: PROM25TA14 PO (23:40)
[2017-02-17] MEDS ORDERED: ED- PROMETHAZINE 25 MG (PHENERGAN) 10 TABLETS/BTL PO ONE
[2017-02-17 00:08] VITALS: BP 107/71
== END 2017-02-17 00:10 | disposition home or self-care (01) ==
LOC: ED 20:15
DX: E86.0 Dehydration (principal); R11.2 Nausea with vomiting, unspecified; C90.00 Multiple myeloma not having achieved remission
CPT/HCPCS: 36415; 74022; 80053; 81003; 81015; 82150; 83690; 85025; 96361; 96372; 96374; 99284; A9270; J1170; J2550; J7030; 99283

== ENCOUNTER → 2017-02-16 | Outpatient (CLI) | payer MEDICARE ==
[~2017-02-16] MED LIST changes: +ACYC200C PO; +CEFD300C PO; +DIPH25TA65 PO; +FLUT1AER IH; +INDA1.25 PO; +ONDA8TAB6 PO; +OXYC10TA7 PO; +POLY255P PO; +POTA20TA15 PO; +PRED10TA PO; +PROM25TA14 PO; +TEST75GE3 TOP
== END ==
LOC: EMS 18:10
PROVIDERS: ATTEND Family Medicine
DX: R11.2 Nausea with vomiting, unspecified (principal)

== ENCOUNTER → 2017-02-26 | Outpatient (CLI) | payer MEDICARE ==
[~2017-02-26] MED LIST changes: +ONDA8TAB6 PO; +OXYC10TA7 PO; +PROM25TA14 PO
[2017-02-26 08:01] LABS: MEAN CORPUSCULAR HEMOGLOBIN 30.6 PG (26.0-34.0); MEAN CORPUSCULAR HGB CONC 34.7 g/dL (31.0-37.0); MEAN CORPUSCULAR VOLUME 88 FL (80-100); MEAN PLATELET VOLUME 9.1 FL (6.0-9.5); PLATELET COUNT 215 10^3uL (150-450)
[2017-02-26 08:10] LABS: BAND NEUTROPHILS % 1 % (0-6); EOSINOPHILS % 1 % (0-4); LYMPHOCYTES # 1.1 #; MONOCYTES # 0.8 #; MONOCYTES % 9 % (3-11); RBC MORPH NORMAL (NORMAL); SEGMENTED NEUTROPHILS % 76 % (51-67); TOTAL CELLS COUNTED 100
[2017-02-26 08:11] LABS: ALBUMIN 4.8 g/dL (3.4-5.0); ANION GAP 18.4 MEQ/L (3-15); CALCULATED IONIZED CALCIUM 3.7 mg/dL (3.8-4.6); MAGNESIUM* 1.8 mg/dL (1.6-2.3)
== END ==
LOC: LAB 07:49
PROVIDERS: ATTEND Internal Medicine Hematology & Oncology
DX: C90.00 Multiple myeloma not having achieved remission (principal)
CPT/HCPCS: 36415; 80053; 82784; 83615; 83735; 83883; 84100; 84155; 85007; 85027; 86334